=== PATIENT | female | born 1935 | race Caucasian/White ===

== ENCOUNTER → 2016-09-27 | Outpatient (CLI) | payer MEDICARE, BC ==
[~2016-09-27] MED LIST: ACETAMINOPHEN; ACETAMINOPHEN PO; ADVIL200 M3 PO; ALBUTEROL17 GM; AMITRYPTYLINE PO; APAP325 M2 PO; ARTIFICIAL TEAR15 ML OU; ASPIRIN PO; BUSPIRONE HCL7.5 MG PO; DELTASONE20 MG PO; ENTRESTO 24 MG1 EACH; HCTZ PO; IBUPROFEN; IBUPROFEN PO; LASIX; LATANOPROST2.5 ML OU; MAXZIDE-25 MG1 UDTAB; METOPROLOL SUCC50 MG PO; OMEPRAZOLE20 M2 PO; PATIENT'S PHARMACY; PRED MILD5 ML OU; PREDNISONE; PREDNISONE2.5 MG PO; PRENATAL1 TA1 PO; PROTONIX40 M1 PO; TOPROL XL50 MG PO; TYLENOL ES PO; ULTRAM PO; VIT B-12 PO; VITAMIN B122500 MCG PO; ZYRTEC PO
== END | disposition home or self-care (01) ==
LOC: CLAB 12:16
DX: D46.9 Myelodysplastic syndrome, unspecified (principal)
CPT/HCPCS: 86850; 86900; 86901; 86923

== ENCOUNTER → 2016-09-28 | Outpatient (CLI) | payer MEDICARE, BC | END | disposition home or self-care (01) | LOC: CSSDAY 07:30 | DX: D46.9 Myelodysplastic syndrome, unspecified (principal); D64.9 Anemia, unspecified | CPT/HCPCS: 36430; 96365; J1100; J1200; J1940; P9016 ==

== ENCOUNTER → 2016-10-26 | Outpatient (CLI) | payer MEDICARE, BC | END | disposition home or self-care (01) | LOC: CLAB 11:33 | DX: D64.9 Anemia, unspecified (principal) | CPT/HCPCS: 36415; 86850; 86900; 86901; 86923 ==

== ENCOUNTER → 2016-10-27 | Outpatient (CLI) | payer MEDICARE, BC ==
[~2016-10-27] MED LIST changes: +ENTRESTO 24 MG1 EACH PO; +KLOR-CON SPRIN10 MEQ PO
== END | disposition home or self-care (01) ==
LOC: CSSDAY 07:48
DX: D46.9 Myelodysplastic syndrome, unspecified (principal); D64.9 Anemia, unspecified
CPT/HCPCS: 36430; 96365; J1200; J1940; P9016

== ENCOUNTER → 2016-11-16 | Outpatient (CLI) | payer MEDICARE, BC | END | disposition home or self-care (01) | LOC: CLAB 13:52 | DX: D64.9 Anemia, unspecified (principal) | CPT/HCPCS: 36415; 86850; 86900; 86901; 86923 ==

== ENCOUNTER → 2016-11-17 | Outpatient (CLI) | payer MEDICARE, BC | END | disposition home or self-care (01) | LOC: CSSDAY 08:00 | DX: D46.9 Myelodysplastic syndrome, unspecified (principal); D64.9 Anemia, unspecified | CPT/HCPCS: 36430; 96374; J1100; J1200; J1940; P9016 ==

== ENCOUNTER 2016-12-20 08:56 | Inpatient (IN) | payer MEDICARE, BC ==
--- NOTE | ~2016-12-20 | CR71 ---
[facility] A Service of [facility] & [facility] RADIOLOGY TEXT RESULTS PATIENT: GERARDO MORA LOCATION: [address] : 37 UNIT #: [id number] AGE: [address]: Isabel Watson MD SEX: F ORDER DR: [id number] [facility] [address] [place], [place] [address] [id number] I MR#: [id number] Acc #: [id number] NAME: GERARDO MORA : 1935 SEX: F STUDY DATE/TIME: 12/21/2016 13:06 UNIT: [facility] ROOM: [facility] STUDY DESCRIPTION: CR Chest Single View Attending Physician: Isabel Watson M.D. Ordering Physician: Er [facility]icians Primary Care Physician: Jono Louis M.D. MEDICAL IMAGING REPORT This report is preliminary unless electronic signature is present EXAM AP chest HISTORY Hypoxia. Shortness of breath onset today with patient intubated. COMPARISON 12/21/2016 TECHNIQUE Single AP view chest was obtained. FINDINGS The endotracheal tube tip is in good position above the sree. Extensive bilateral infiltrates are again noted. No changes are seen when differences in degree of inspiration are taken into account. The endotracheal tube is in satisfactory position. Dictated by... Nathaniel Tran M.D. THIS IS AN ELECTRONICALLY VERIFIED REPORT Nathaniel Tran M.D. at 12/21/2016 5:10 PM AYUSH/heaven TD: 12/21/2016 15:14 JOB #: [id number] MEDICAL IMAGING REPORT Page 1 of 1 COPY
--- NOTE | ~2016-12-20 | CR72 ---
[facility] A Service of [facility] RADIOLOGY TEXT RESULTS PATIENT: GERARDO MORA LOCATION: [address]28 : 37 UNIT #: [id number] AGE: [address]: Esthela Recinos MD SEX: F ORDER DR: [id number] [place] [address] [place], [place] [address] [id number] I MR#: [id number] Acc #: [id number] NAME: GERARDO MORA. : 1935 SEX: F STUDY DATE/TIME: 12/25/2016 5:24 UNIT: [facility] ROOM: [facility] STUDY DESCRIPTION: CR Chest Single View Portable Attending Physician: Esthela Recinos M.D. Ordering Physician: Ovidio Rhodes M.D. Primary Care Physician: Jono Louis M.D. MEDICAL IMAGING REPORT This report is preliminary unless electronic signature is present EXAM Frontal chest 12/25/2016 INDICATIONS Pneumonia followup. ET tube placement. Respiratory failure. Congestive heart failure. Symptoms 5 days. Anemia and COPD. COMPARISON Frontal chest compared with 12/24/2016. FINDINGS ET tube tip in good position above the sree. Enteric tube tip at the level of the midbody stomach. Right-sided central line unchanged. The heart is enlarged, but stable. Bilateral effusions and bibasilar atelectasis or infiltrates unchanged. Probable vascular congestion and interstitial edema persist. No pneumothorax. IMPRESSION Tubes and lines in satisfactory position. No significant change from 12/24/2016. Dictated by... Crispin Castillo M.D. THIS IS AN ELECTRONICALLY VERIFIED REPORT Crispin Castillo M.D. at 12/25/2016 4:12 PM Andrea TD: 12/25/2016 14:06 JOB #: [id number] MEDICAL IMAGING REPORT [facility] A Service of [facility] RADIOLOGY TEXT RESULTS PATIENT: GERARDO MORA LOCATION: [address] : 37 UNIT #: [id number] AGE: [address]: Esthela Recinos MD SEX: F ORDER DR: Page 1 of 1 COPY
--- NOTE | ~2016-12-20 | CR72 ---
[facility] A Service of [facility] RADIOLOGY TEXT RESULTS PATIENT: GERARDO MORA LOCATION: [place] [address] : 37 UNIT #: [id number] AGE: [address]: Isabel Watson MD SEX: F ORDER DR: [id number] [facility] [address]. [place], [place] [address] [id number] I MR#: [id number] Acc #: [id number] NAME: GERARDO MORA. : 1935 SEX: F STUDY DATE/TIME: 12/23/2016 5:46 UNIT: [facility] ROOM: [facility] STUDY DESCRIPTION: CR Chest Single View Portable Attending Physician: Isabel Watson M.D. Ordering Physician: Ovidio Rhodes M.D. Primary Care Physician: Jono Louis M.D. MEDICAL IMAGING REPORT This report is preliminary unless electronic signature is present EXAM Frontal chest, 12/23/2016. INDICATIONS Shortness of air, symptomatic anemia. Symptoms 2 days. Hypertension. Tobacco abuse. TECHNIQUE Frontal chest compared with 12/21/2016. FINDINGS There has been interval placement of an enteric tube and the tip is at the level of the proximal to midbody stomach. Preexisting tubes and lines in satisfactory position. The heart is enlarged. There are small effusions with probable bibasilar atelectasis. Interstitial opacities bilaterally stable to slightly improved and probably represent slight improvement in edema. No pneumothorax. IMPRESSION 1. Slight improvement in probable pulmonary edema. Persistent effusions and probable bibasilar atelectasis. No pneumothorax. Dictated by... Crispin Castillo M.D. THIS IS AN ELECTRONICALLY VERIFIED REPORT Crispin Castillo M.D. at 12/23/2016 3:31 PM Amanda TD: 12/23/2016 13:26 JOB #: [id number] MEDICAL IMAGING REPORT [facility] A Service of [facility] RADIOLOGY TEXT RESULTS PATIENT: GERARDO MORA LOCATION: [address]28 : 37 UNIT #: [id number] AGE: [address]: Isabel Watson MD SEX: F ORDER DR: Page 1 of 1 COPY
--- NOTE | ~2016-12-20 | EKG ---
PATIENT: GERARDO MORA UNIT #: [id number] Ventricular Rate: 82 BPM Atrial Rate: 73 BPM QRS Duration: 126 ms Q-T Interval: 394 ms QTC Calculation(Bezet): 460 ms Calculated R Herndon: -13 degrees Calculated T Herndon: 104 degrees Diagnosis Line: Unusual P axis, possible ectopic atrial rhythm Diagnosis Line: with premature ventricular or aberrantly conducted Diagnosis Line: complexes and PAC's Diagnosis Line: Left bundle branch block Diagnosis Line: Abnormal ECG Diagnosis Line: When compared with ECG of 20-DEC-2016 09:36, Diagnosis Line: (unconfirmed) Diagnosis Line: PAC's and PVC's present Diagnosis Line: Confirmed by TRE RAPHAEL MD ([id number]) on Diagnosis Line: 12/21/2016 11:11:33 AM INTERPRETING MD: NIKKI
--- NOTE | ~2016-12-20 | CR72 ---
[facility] A Service of [facility] & [facility] RADIOLOGY TEXT RESULTS PATIENT: GERARDO MORA LOCATION: [facility] 566-01 : 37 UNIT #: [id number] AGE: [address]: Janice Pablo MD SEX: F ORDER DR: [id number] [facility] [address] [place], [place] [address] [id number] I MR#: [id number] Acc #: [id number] NAME: GERARDO MORA : 1935 SEX: F STUDY DATE/TIME: 12/20/2016 9:40 UNIT: [facility] ROOM: [facility] STUDY DESCRIPTION: CR Chest Single View Portable Attending Physician: Janice Pablo M.D. Ordering Physician: Marcella Rowe M.D. Primary Care Physician: Jono Louis M.D. MEDICAL IMAGING REPORT This report is preliminary unless electronic signature is present EXAM Single view chest INDICATIONS Shortness of air. FINDINGS Single portable AP view of the chest without comparison. The heart is mildly enlarged. There is mild interstitial prominence. The lungs are hyperinflated. There are small bilateral pleural effusions. No pneumothorax. IMPRESSION 1. Cardiomegaly, mild interstitial prominence and small bilateral pleural effusions suggest background pulmonary edema. Dictated by... Albert Connors M.D. THIS IS AN ELECTRONICALLY VERIFIED REPORT Albert Connors M.D. at 12/20/2016 4:53 PM C/alma delia TD: 12/20/2016 14:41 JOB #: [id number] MEDICAL IMAGING REPORT Page 1 of 1 COPY
--- NOTE | ~2016-12-20 | CR7 ---
[facility] A Service of [facility] & [facility] RADIOLOGY TEXT RESULTS PATIENT: GERARDO MORA LOCATION: [address]07[address]28 : 37 UNIT #: [id number] AGE: [address]: Isabel Watson MD SEX: F ORDER DR: [id number] [facility] [address] [place], [place] [address] [id number] I MR#: [id number] Acc #: [id number] NAME: GERARDO MORA : 1935 SEX: F STUDY DATE/TIME: 12/21/2016 13:53 UNIT: [facility] ROOM: [facility] STUDY DESCRIPTION: CR Abdomen Single AP View Attending Physician: Isabel Watson M.D. Ordering Physician: Isabel Watson M.D. Primary Care Physician: Jono Louis M.D. MEDICAL IMAGING REPORT This report is preliminary unless electronic signature is present EXAM AP of the abdomen INDICATIONS Dobbhoff tube COMPARISON No comparisons FINDINGS The NG tube is coiled in the esophagus. There is persistent contrast within the kidneys and collecting system. IMPRESSION Dobbhoff tube is coiled in the esophagus. It needs to be removed and re-advanced. Report discussed with the patient's nurse at the time of dictation. Dictated by... Monty Erazo M.D. THIS IS AN ELECTRONICALLY VERIFIED REPORT Monty Erazo M.D. at 12/22/2016 7:24 PM ARS/to TD: 12/21/2016 17:02 JOB #: [id number] MEDICAL IMAGING REPORT Page 1 of 1 COPY
--- NOTE | ~2016-12-20 | FU ---
[facility] Therapy DATE: 12/26/16 Patient: GERARDO MORA Physician: SIRIA Address: [address] [place] [address] DRIVE Room/Bed: [address], Zip: [place] [address] Admit Date: 12/20/16 Date of : 39 Height: 5 3 Weight: 139 63.5 NUTRITION MONITORING/FOLLOW-UP: Reason: PT SEEN FOR ENTERAL NUTRITION SUPPORT FOLLOW-UP DX: SYMPTOMATIC ANEMIA, SOA Anthropometrics: 5'3", WT: 139# (63 KG), BMI: 24.6 -WEIGHTS HAVE BEEN STABLE SINCE ADMIT-ADMIT WT: 138# Labs: K+:3.4, GLU: 124, BUN: 36, ALB: 3.4, A1c: 6.4 Meds: NACL, KCL, SOLU-MEDROL, LIPITOR, FUROSEMIDE, CYANOCOBALAMIN, VERSED, PROTONIX I&O's: 1192/2420 Skin: NO KNOWN SKIN ISSUES Estimated Nutrition Needs: [id number] KCAL 62-93 G PRO Assessment: CHART REVIEWED AND EVENTS NOTED. PT SEEN FOR FOLLOW-UP. PT CONTINUES TO BE ON VENT, CURRENT ENTERAL NUTRITION SUPPORT OF JEVITY 1.5 TURNED OFF 2' PROCEDURE TODAY. PER RN AND CHART, PT TOLERATING ENTERAL NUTRITION SUPPORT, NO ISSUES NOTED. FAMILY IN ROOM REPORTED PT CURRENT WEIGHT IS 134#. FAMILY REPORTED NO DIET QUESTIONS AT THIS TIME. RD TO CONTINUE TO FOLLOW. Dx: INADEQUATE ORAL INTAKE R/T CURRENT CLINICAL CONDITION AEB NPO, INTUBATION.-ACTIVE NEW DX: INADEQUATE ENTERAL NUTRITION INFUSION R/T EN NOT AT GOAL RATE AEB EN TURNED OFF 2' PROCEDURE. Intervention: 1. NPO Monitoring, Evaluation and Goals: 1. ENTERAL NUTRITION; ONCE INITIATED, PROVIDE >80% TOTAL VOLUME-NOT MET 2. WEIGHTS; PROMOTE WEIGHT MAINTENANCE-ACTIVE/IN PROEGRESS 3. LABS; WNL-IN PROGRESS NEW GOALS: 1. GI; PROMOTE REGULAR GI FUNCTION MONITOR: -TF RE-INITIATION [facility] Therapy DATE: 12/26/16 Patient: GERARDO MORA Physician: SIRIA Address: [address] [place], [place] [address] [address] Room/Bed: [address], Zip: [place] [address] Admit Date: 12/20/16 Date of : 37 Height: 5 3 Weight: 139 63.5 -WEIGHTS -LABS -EXTUBATION Recommendations: 1. ONCE MEDICALLY FEASIBLE, RE-INITIATE ENTERAL NUTRITION SUPPORT OF JEVITY 1.5 @ 20 ML/HR, ADVANCE 10 ML q 4 HOURS TO GOAL RATE OF 50 ML/HR -PROVIDES 1800 KCAL, 77 G PRO, 912 ML FREE H20 CONTINUE FREE H20 FLUSHES PER MD 2. OPTIMIZE BLOOD SUGAR CONTROL REGIMEN-PT ON STEROIDS. PLEASE REPLETE K+ LEVELS 3. ONCE PT EXTUBATED, ADVANCE DIET PER KILN [employer] + REGULAR + [address] WILL F/U PER PROTOCOL PT IS MODERATELY COMPROMISED Respectfully, AZUL ENNIS MS, RD, LD [employer] and Nutrition[facility] Services [facility] cc: client file
--- NOTE | ~2016-12-20 | EKG ---
PATIENT: GERARDO MORA UNIT #: [id number] Ventricular Rate: 65 BPM Atrial Rate: 65 BPM P-R Interval: 170 ms QRS Duration: 130 ms Q-T Interval: 416 ms QTC Calculation(Bezet): 432 ms P Morrill: 54 degrees Calculated R Morrill: -14 degrees Calculated T Morrill: 120 degrees Diagnosis Line: Normal sinus rhythm with sinus arrhythmia Diagnosis Line: Left bundle branch block Diagnosis Line: Abnormal ECG Diagnosis Line: When compared with ECG of 21-DEC-2016 08:58, Diagnosis Line: Sinus rhythm has replaced Ectopic atrial rhythm Diagnosis Line: Confirmed by SANJEEV DICK MD ([id number]) on Diagnosis Line: 12/22/2016 3:07:53 PM INTERPRETING MD: KAPIL SOTO
--- NOTE | ~2016-12-20 | CR72 ---
[facility] A Service of [facility] & [facility] RADIOLOGY TEXT RESULTS PATIENT: GERARDO MORA LOCATION: [address]28 : 37 UNIT #: [id number] AGE: [address]: Isabel Watson MD SEX: F ORDER DR: [id number] [facility] [address] [place], [place] [address] [id number] I MR#: [id number] Acc #: [id number] NAME: GERARDO MORA : 1935 SEX: F STUDY DATE/TIME: 12/21/2016 17:54 UNIT: [facility] ROOM: [facility] STUDY DESCRIPTION: CR Chest Single View Portable Attending Physician: Isabel Watson M.D. Ordering Physician: Er [facility]icians Primary Care Physician: Jono Louis M.D. MEDICAL IMAGING REPORT This report is preliminary unless electronic signature is present EXAM Single view of the chest 12/21/2016 at 1754 hours COMPARISON STUDIES Single view chest 12/21/2016 at 1306 hours HISTORY Shortness of air. Endotracheal tube and line placement. Symptoms started on 12/21/2016. FINDINGS Frontal view of the chest was obtained. Tip of the endotracheal tube is about 4.8 cm from the tip of the sree. Right IJ approach PICC line catheter tip is in the region of the SVC. No obvious pneumothorax is seen. Scattered alveolar and interstitial opacities are noted in the lungs bilaterally, particularly in the perihilar regions extending to the lateral aspect of the 3 lobes on each side. This was also seen on the previous study and it is relatively stable, given the differences in technique and respiratory status. Mild bilateral pleural effusions cannot be excluded, given the hazy opacity in region of bilateral lateral CP angles. No obvious pneumothorax. Borderline-sized to mild cardiomegaly. Dictated by... Erik Mart M.D. THIS IS AN ELECTRONICALLY VERIFIED REPORT Erik Mart M.D. at 12/22/2016 2:24 PM CPR/pcl TD: 12/21/2016 21:13 [facility] A Service of [facility] & [facility] RADIOLOGY TEXT RESULTS PATIENT: GERARDO MORA LOCATION: [address] : 37 UNIT #: [id number] AGE: [address]: Isabel Watson MD SEX: F ORDER DR: SARAH #: [id number] MEDICAL IMAGING REPORT Page 1 of 1 COPY
--- NOTE | ~2016-12-20 | CR72 ---
[facility] A Service of [facility] & [facility] RADIOLOGY TEXT RESULTS PATIENT: GERARDO MORA LOCATION: [facility] - : 37 UNIT #: [id number] AGE: [address]: Ovidio Araujo MD SEX: F ORDER DR: [id number] [facility] [address] [place], [place] [address] [id number] I MR#: [id number] Acc #: [id number] NAME: GERARDO MORA : 1935 SEX: F STUDY DATE/TIME: 12/29/2016 5:52 UNIT: [address] ROOM: [facility] STUDY DESCRIPTION: CR Chest Single View Portable Attending Physician: Ovidio Araujo M.D. Ordering Physician: Ovidio Araujo M.D. Primary Care Physician: Jono Louis M.D. MEDICAL IMAGING REPORT This report is preliminary unless electronic signature is present EXAM Single view chest INDICATION Shortness of air and cough. FINDINGS Single portable AP view of the chest compared to 12/27/2016. The endotracheal tube and enteric tube have been removed. Right IJ remains in place. There is a prominent skin fold in the right and left lung. There is no pneumothorax. There is increasing atelectasis and/or effusion in the left lung base. IMPRESSION 1. Interval extubation and removal of the enteric tube. 2. Developing atelectasis and/or small effusion in the left lung base. Dictated by... Albert Connors M.D. THIS IS AN ELECTRONICALLY VERIFIED REPORT Albert Connors M.D. at 12/30/2016 12:49 AM RUTH/elvis TD: 12/29/2016 06:42 JOB #: [id number] MEDICAL IMAGING REPORT Page 1 of 1 COPY
--- NOTE | ~2016-12-20 | CO ---
Unit #: [id number] #: [id number] Patient: GERARDO MORA [id number] [address] [place], [place] [address] [id number] I MR#: [id number] NAME: GERARDO MORA. ROOM: [facility] Age: 81 Sex: F Admission Date: 12/20/2016 : 1935 Attending Physician: Isabel Watson M.D. Primary Care Physician: Jono Louis M.D. Consultation Date: 12/21/2016 CONSULTATION REPORT DICTATED FOR Dr. Chilo Hogue with [facility]. REASON FOR CONSULTATION Possible CHF as well as elevated troponin. HISTORY OF PRESENT ILLNESS The patient is a 81-year-old white female, who at the time of interview is visibly short of breath and has difficulty with answering questions due to her shortness of breath, so information obtained was very limited by this. The patient states that she did come in for shortness of breath and weakness. She has been getting blood transfusions for history of MDS. Her last transfusion was 11/17/2016. She states that she had been short of breath for the past couple of days and this usually happens when her hemoglobin is low. On admission, her hemoglobin was noted to be 5.5. She was given 2 units of blood and her hemoglobin now is 8.3. After the blood, the patient's saturations became worsened and it was felt that she may be in some fluid overload and Cardiology consult was obtained. The patient denies any kind of chest pain, pressure, tightness prior to admission or currently. The patient has a medical history of hypertension, myelodysplastic syndrome, polymyalgia rheumatica, tobacco abuse, small-bowel obstruction. In the emergency department, the blood pressure was 117/41, pulse 77. On EKG, the patient does have a left bundle branch; however, we were unable to determine if this is new as there is no comparison EKG on the chart. PAST MEDICAL HISTORY 1. Hypertension. 2. Myelodysplastic syndrome. 3. Polymyalgia rheumatica. 4. Vertigo. 5. Small bowel obstruction. PAST SURGICAL HISTORY Includes; 1. Colonoscopy. 2. Tonsillectomy. 3. Hysterectomy. 4. Bladder repair. 5. Left first toe surgery. Unit #: [id number] #: [id number] Patient: GERARDO MORA 6. Cataract surgery. 7. Sinus surgery. 8. Colostomy reversal. SOCIAL HISTORY The patient is a smoker of one pack per day. She denies any alcohol abuse or any other drug abuse. ALLERGIES Include penicillin allergy. HOME MEDICATIONS Include latanoprost one drop at bedtime, hydrochlorothiazide 50 mg p.o. every morning, metoprolol succinate 50 mg p.o. every morning, prednisone, ibuprofen 200 mg p.o. b.i.d., acetaminophen 325 mg p.o. b.i.d., vitamin B12 one tab p.o. daily. REVIEW OF SYSTEMS See HPI. PHYSICAL EXAMINATION GENERAL: This is a 81-year-old white female, who is visibly short of breath. VITAL SIGNS: Blood pressure 135/42, temp 97.9, pulse 81, respirations 18. HEENT: Pupils are equal, round, and reactive. Oral mucosa is moist. NECK: No JVD. No thyromegaly. No lymphadenopathy. No carotid bruits. HEART: S1, S2. No S3 or S4. No clicks, no rubs, no murmurs. Regular rate and rhythm. LUNGS: Wheezing throughout. ABDOMEN: Soft. Bowel sounds positive. Nontender and nondistended. EXTREMITIES: No swelling. NEUROLOGICAL: No neuro deficits noted. DIAGNOSTIC STUDIES LABORATORY RESULTS: Includes a troponin of less than 0.05, then less than 0.05, then 0.05, then 0.11, then 1.42. White count 34.1, hemoglobin 8.3, hematocrit 26.2, platelets 56. Sodium 136, potassium 3.4, chloride 99, CO2 of 25, BUN 15, creatinine 0.9, glucose 148. BNP 1468. IMAGING STUDIES: Chest x-ray shows increasing interstitial and alveolar prominence likely fluid pulmonary edema. IMPRESSION 1. Symptomatic anemia. 2. EKG with a left bundle-branch block, no comparison. 3. Possible right lower lobe pneumonia. 4. Dvx-BX-kegpfwm elevation myocardial infarction, possible O2 mismatch versus anemia versus acute myocardial infarction. 5. Hypokalemia. PLAN Hips are going to start the patient on low-dose aspirin. The patient cannot have heparin or Lovenox currently with her anemia as well as the visible blood in the Rodriguez catheter. We will trend troponins and check an EKG now as well as in the morning. We will order a 2D echo to evaluate LV function. We will replace potassium. The patient will likely need an ischemic workup once medically stable. Dr. Hampton will also see and evaluate the patient. Unit #: [id number] #: [id number] Patient: GERARDO MORA Dictated by... GABINO Vasquez TD: 12/22/2016 13:50 JOB #: [id number] CONSULTATION REPORT Page 1 of 1 X X CONSULTATION REPORT
--- NOTE | ~2016-12-20 | CR72 ---
[facility] A Service of [facility] & [facility] RADIOLOGY TEXT RESULTS PATIENT: GERARDO MORA LOCATION: [address]28 : 37 UNIT #: [id number] AGE: [address]: Esthela Recinos MD SEX: F ORDER DR: [id number] [facility] [address] [place], [place] [address] [id number] I MR#: [id number] Acc #: [id number] NAME: GERARDO MORA : 1935 SEX: F STUDY DATE/TIME: 12/24/2016 4:50 UNIT: [facility] ROOM: [facility] STUDY DESCRIPTION: CR Chest Single View Portable Attending Physician: Esthela Recinos M.D. Ordering Physician: Ovidio Rhodes M.D. Primary Care Physician: Jono Louis M.D. MEDICAL IMAGING REPORT This report is preliminary unless electronic signature is present EXAM Single view chest. INDICATIONS Shortness of air and hypertension. FINDINGS Single portable AP view of the chest compared with 12/23/2016. Support lines and tubes are unchanged. The heart and mediastinal contours are stable. Increased airspace opacities and bilateral pleural effusions are unchanged. No pneumothorax. IMPRESSION No interval change. Dictated by... Albert Connors M.D. THIS IS AN ELECTRONICALLY VERIFIED REPORT Albert Connors M.D. at 12/25/2016 1:02 AM RUTH/rainer TD: 12/24/2016 18:11 JOB #: [id number] MEDICAL IMAGING REPORT Page 1 of 1 COPY
--- NOTE | ~2016-12-20 | DS ---
Unit #: [id number] #: [id number] Patient: GERARDO MORA [id number] [address] [place], [place] [address] [id number] I MR#: [id number] NAME: GERARDO MORA. ROOM: 312 Age: 81 Sex: F Admission Date: 12/20/2016 : 1935 Discharge Date: 12/30/2016 Attending Physician: Ovidio Araujo M.D. Primary Care Physician: Jono Louis M.D. DISCHARGE SUMMARY NOTE: Please see initial transfer of care summary dictated by Dr. Watson on December 23, 2016 for diagnoses, consultants and initial clinical history. ADDITIONAL HISTORY The patient had a negative flow cytometry panel, as well as a bone marrow that continues to be suggestive of myelodysplastic syndrome. The patient does not have any acute leukemia or lymphoma noted. She has previously been transfusion dependent with her MDS, requiring transfusions every 2 weeks or so prior to her acute illness. The patient is felt to likely have obstructive coronary artery disease; however, no cardiac cath is going to be done, as this would not change the treatment. At the current time, the patient is felt to be too clinically unstable to be placed on antiplatelet therapy, which would be necessary if any stenting was to be done on her coronary arteries. Likewise, she is felt to have a high mortality rate if she were to undergo coronary artery bypass grafting. At this time we are going to treat her coronary artery disease medically, but considering her transfusion dependent myelodysplastic syndrome and the fact that the patient does have some intermittent symptomatic angina at low hemoglobin levels, we are recommending that her transfusion plan be set for any hemoglobin less than 8 and could be considered higher if she develops chest pain at hemoglobin greater than 8. She is going to be treated with maximal medical therapy, and in the event of chest pain, therapies such as sublingual nitroglycerin or p.o. oral morphine can be tried, and of course, a hemoglobin level should be checked if the patient is developing issues with chest pain and transfused for any hemoglobin less than 8. The patient was weaned off the ventilator and has continued to clinically improved. She continues to have some mild infiltrates in her lungs that are felt to be improving pulmonary edema from her non-ST segment elevation TN and heart failure. She can continue to wean from oxygen as able with continued diuresis, and her Lasix dose can be decreased if felt appropriate at rehab. Patient did have her hemoglobin decreased slightly on the morning of discharge from a level of 7.5 to 6.9. She is not felt to have any acute bleeding, and this is felt to be related to her blood draws and myelodysplastic syndrome. She was given 2 units of packed red blood cells on the day of discharge. DISCHARGE DISPOSITION Signature assisted unit. Unit #: [id number] #: [id number] Patient: GERARDO MORA DISCHARGE STATUS Stable. DISCHARGE ACTIVITY With assistance only. DISCHARGE DIET A 4-jdet-nms-day sodium restriction. DISCHARGE FOLLOW-UP 1. With her pickling grader, Dr. Do, in 1 month. 2. Follow up with Dr. Hogue with cardiology in 4-6 weeks for consideration of cardiac intervention at that time if she is improving in regard to her blood counts and other medical issues. 3. Follow up with primary care physician in 3-8 weeks. 4. Follow up with Dr. Rhodes in 8-10 weeks. DISCHARGE MEDICATIONS 1. Dulera 200, take 2 puffs b.i.d. 2. Combivent 3 mL inhaled q.4 hours p.r.n. shortness of breath. 3. Prednisone 30 mg p.o. daily for 2 days, then 20 mg p.o. daily for 2 days, then 10 mg daily, likely for the rest of her life due to her history of polymyalgia rheumatica. 4. Tylenol 325 mg p.o. b.i.d. 5. Entresto 24 mg/26 mg 1 tablet p.o. b.i.d. 6. Metoprolol tartrate 12.5 mg p.o. b.i.d. 7. Lasix 20 mg p.o. b.i.d. Recommend diuretic dosing times of 6 a.m. and 3 a.m. or near that. 8. Latanoprost drops 1 drop both eyes q.h.s. 9. Lipitor 80 mg p.o. q.h.s. 10. Aspirin 325 mg p.o. daily. 11. Roxanol 10 mg p.o. q.4 hours p.r.n. pain. 12. Nitroglycerin 0.4 mg sublingual q.5 minutes x3 maximum p.r.n. chest pain. 13. Potassium chloride 40 mEq p.o. b.i.d. Okay to use liquid, tablets or powder, depending on patient preference. 14. Protonix 40 mg p.o. daily. 15. Vitamin B12 one tablet p.o. daily. Dictated by... Ovidio Araujo M.D. MARY KAY/andres TD: 12/30/2016 11:37 JOB #: [id number] Unit #: [id number] #: [id number] Patient: GERARDO MORA DISCHARGE SUMMARY Page 1 of 1 X Ovidio Araujo MD X DISCHARGE SUMMARY
--- NOTE | ~2016-12-20 | CR72 ---
[facility] A Service of [facility] & [facility] RADIOLOGY TEXT RESULTS PATIENT: GERARDO MORA LOCATION: [address]28 : 37 UNIT #: [id number] AGE: [address]: Ovidio Araujo MD SEX: F ORDER DR: [id number] [facility] [address] [place], [place] [address] [id number] I MR#: [id number] Acc #: [id number] NAME: GERARDO MORA : 1935 SEX: F STUDY DATE/TIME: 12/26/2016 4:35 UNIT: [facility] ROOM: [facility] STUDY DESCRIPTION: CR Chest Single View Portable Attending Physician: Ovidio Araujo M.D. Ordering Physician: Ovidio Rhodes M.D. Primary Care Physician: Jono Louis M.D. MEDICAL IMAGING REPORT This report is preliminary unless electronic signature is present EXAM Portable chest, 12/26. INDICATIONS Respiratory failure. CHF. FINDINGS AP portable chest is compared with 12/25/2016. Cardiomegaly is stable. Mitral annulus calcifications are present. Feeding tube in the stomach. ET tube and right IJ line are in good position. Bilateral interstitial infiltrates are again seen and are stable to minimally improved. There are persistent small effusions. No pneumothorax. Dictated by... Nathaniel Antonio Jr., M.D. THIS IS AN ELECTRONICALLY VERIFIED REPORT Nathaniel Antonio Jr., M.D. at 12/26/2016 3:48 PM SIRENA/autumn TD: 12/26/2016 14:08 JOB #: [id number] MEDICAL IMAGING REPORT Page 1 of 1 COPY
--- NOTE | ~2016-12-20 | CT16 ---
[facility] A Service of [facility] & [facility] RADIOLOGY TEXT RESULTS PATIENT: GERARDO MORA LOCATION: [address]28 : 37 UNIT #: [id number] AGE: [address]: Isabel Watson MD SEX: F ORDER DR: [id number] [facility] [address] [place], [place] [address] [id number] I MR#: [id number] Acc #: [id number] NAME: GERARDO MORA. : 1935 SEX: F STUDY DATE/TIME: 12/21/2016 11:10 UNIT: [facility] ROOM: [facility] STUDY DESCRIPTION: CT Angio Chest for PE Attending Physician: Isabel Watson M.D. Ordering Physician: Isabel aWtson M.D. Primary Care Physician: Jono Louis M.D. MEDICAL IMAGING REPORT This report is preliminary unless electronic signature is present EXAM CT chest with contrast with CT angiography HISTORY Hypoxia and anemia, shortness of breath for the past 3 days. TECHNIQUE Axial images were obtained through the chest with contrast. 80 mL of Isovue was used. CT angiography was performed with thick sliding MIPs in the sagittal and coronal projections. This CT exam was performed with one or more of the following radiation dose reduction techniques: automatic exposure control, adjustment of mA and/or kV according to patient size, and iterative reconstruction. FINDINGS Chest images at mediastinal window show good filling of the pulmonary arteries. There are no pulmonary artery filling defects to suggest emboli. There are no enlarged mediastinal or hilar lymph nodes. Cardiomegaly is noted and there are small bilateral pleural effusions. Lung window imaging shows bilateral lower lobe atelectasis with extensive infiltrates seen in both lower lobes and more posteriorly in both upper lobes with patchy mosaic areas of ground-glass infiltrate seen in the anterior aspect of both upper lobes. There is also linear scarring or plate-like atelectasis in the right middle lobe. No definite bronchiectasis is seen. The lung images lose some detail because of respiratory artifact from shortness of breath. There is a suggestion of some emphysematous change as well. IMPRESSION 1. Extensive bilateral pulmonary infiltrates predominantly in dependent STS. [facility] A Service of [facility] & [facility] RADIOLOGY TEXT RESULTS PATIENT: GERARDO MORA LOCATION: [address] : 37 UNIT #: [id number] AGE: [address]: Isabel Watson MD SEX: F ORDER DR: [facility] [place]. This could reflect bilateral aspiration pneumonitis. Infectious pneumonia should also be considered. 2. This is accompanied by small bilateral pleural effusions. 3. No evidence of pulmonary embolism. STAT * RESULT Dictated by... Nathaniel Tran M.D. THIS IS AN ELECTRONICALLY VERIFIED REPORT Nathaniel Tran M.D. at 12/21/2016 1:27 PM AYUSH/amarilis TD: 12/21/2016 11:59 JOB #: [id number] MEDICAL IMAGING REPORT Page 1 of 1 COPY
--- NOTE | ~2016-12-20 | CO ---
Unit #: [id number] #: [id number] Patient: GERARDO HANSON [id number] [address] [place], [place] [address] [id number] I MR#: [id number] NAME: GERARDO HANSON ROOM: [facility] Age: 81 Sex: F Admission Date: 12/20/2016 : 1935 Attending Physician: Isabel Watson M.D. Primary Care Physician: Jono Louis M.D. Consultation Date: 12/21/2016 CONSULTATION REPORT REASON FOR CONSULTATION Respiratory failure. HISTORY OF PRESENT ILLNESS A 81-year-old female, who denies any history of lung disease except for a diagnosis of "early COPD," has a history of myelodysplasia and receives transfusions for anemia. Her last transfusion was approximately 6 weeks ago. She had increasing shortness of breath, presented to the emergency room, she was anemic and received 2 units of blood. Her shortness of breath worsened. Saturations were quite low. She now is on high-flow oxygen with adequate saturations. Chest x-ray shows bilateral pulmonary infiltrates. Her troponin is elevated. She is felt to have had a myocardial infarction and Cardiology is seeing. She denies chest pain, palpitations, hemoptysis, pleurisy, sputum production, cough, or fever. She does have wheezing even prior to this episode. PAST MEDICAL HISTORY Remarkable for; 1. Possible COPD. 2. Myelodysplasia syndrome, requiring apparently frequent transfusions. 3. Polymyalgia rheumatica on chronic steroids, they had been tapered down to 2 or 3 mg a day. 4. Hypertension. 5. History of small bowel obstruction. MEDICATIONS According to the med rec sheet, include some eyedrops, hydrochlorothiazide, metoprolol, prednisone, and a variety of p.r.n. medications. ALLERGIES Penicillin and sulfa, unknown reaction. SOCIAL HISTORY She smokes pack of cigarettes a day, but used to smoke 2 packs of cigarettes a day. Her daughter states that she would alternate menthol for regular cigarettes when she was smoking heavily. She denies alcohol use. FAMILY HISTORY No familial lung disease. REVIEW OF SYSTEMS She basically denies anything. She had shortness of breath, which Unit #: [id number] #: [id number] Patient: GERARDO HANSON worsened after transfusion. No abdominal pain, melena, hematochezia, hematuria, dysuria, focal weakness, paresthesias, leg pain, swelling. Further review of systems either in the HPI are negative. PHYSICAL EXAMINATION GENERAL: Reveals a patient, who is pleasant, awake, alert in no distress on high-flow oxygen with saturations at 94% to 95%. VITAL SIGNS: She is afebrile. Pulse 76, respiratory rate is 24, blood pressure is 109/69, 5 feet 3 inches, 138 pounds. HEENT: Pupils are equal, round, and reactive to light. Sclerae anicteric. Head atraumatic. NECK: Supple. No supraclavicular or cervical adenopathy appreciated. CHEST: Fine crackles bilaterally posteriorly. She does have some wheezing. No stridor. CARDIAC: Reveals somewhat distant heart tones. Regular rate and rhythm. No definite murmur, rub, or gallop. ABDOMEN: Soft and nontender. No hepatomegaly or rebound. EXTREMITIES: Reveal no clubbing, cyanosis, or edema. No calf tenderness. SKIN: Warm and dry without rash or diaphoresis. NEUROLOGIC: Grossly intact. No focal motor or sensory deficits. DIAGNOSTIC STUDIES LABORATORY RESULTS: Chest x-ray relatively clear today, diffuse pulmonary infiltrates consistent with pulmonary edema. LABORATORY RESULTS: Arterial blood gas; pH is 7.42, pCO2 of 41, pO2 of 52 on 6 L. She had a repeat blood gas still with significant hypoxemia on 15 L Oxymizer, now she is on high-flow oxygen with adequate saturations. Her BUN is 15, creatinine is 0.9, potassium 3.4, magnesium 1.5. Troponin is 1.42. BNP yesterday 468. Lactic acid normal. Procalcitonin level 0.23. INR normal. Initial cardiac enzymes were negative. White blood cell count is 54, hemoglobin is 8.3, platelet count 56. Blood cultures performed and are pending. Sputum culture is pending. CARDIOVASCULAR STUDIES: EKG; left bundle-branch block. IMPRESSION 1. Acute hypoxemic respiratory failure with bilateral pulmonary edema and acute onset, most likely cardiogenic pulmonary edema in the face of acute myocardial infarction. She may have some volume overload related to her transfusion. Consider TRALI. 2. Massive tobacco use, suspect underlying chronic obstructive pulmonary disease. 3. Myelodysplasia with anemia and pancytopenia. 4. Acute myocardial infarction. 5. Polymyalgia rheumatica, on chronic steroids. 6. History of hypertension. PLAN Agree with steroids, Lasix, nebulized bronchodilators. Agree with high-flow oxygen. Close observation, but if she improves as anticipated, I think she is safe to watch on telemetry. Certainly if she worsens, she will need ICU observation. I will check a BNP today and follow up for echocardiogram. If her BNP remains borderline and her echo shows normal LV function, consider TRALI. Again, more common etiology of pulmonary infiltrates are most likely. Certainly, no smoking is a great benefit and evaluation of underlying COPD can be performed. Unit #: [id number] #: [id number] Patient: GERARDO HANSON Thank you very much for allowing me to participate in the care of the Ms. Hanson. Dictated by... Ovidio Rhodes M.D. AIDA/solomon TD: 12/22/2016 13:57 JOB #: [id number] CC: Nichole Pereira Jr, M.D. CONSULTATION REPORT Page 1 of 1 X Ovidio Rhdoes MD X CONSULTATION REPORT
--- NOTE | ~2016-12-20 | EKG ---
PATIENT: GERARDO MORA UNIT #: [id number] Ventricular Rate: 68 BPM Atrial Rate: 68 BPM P-R Interval: 150 ms QRS Duration: 140 ms Q-T Interval: 450 ms QTC Calculation(Bezet): 478 ms P [place]: 69 degrees Calculated R [place]: 9 degrees Calculated T [place]: 158 degrees Diagnosis Line: Sinus rhythm with Premature atrial complexes Diagnosis Line: Non-specific intra-ventricular conduction block Diagnosis Line: Cannot rule out Anteroseptal infarct , age Diagnosis Line: undetermined Diagnosis Line: T wave abnormality, consider anterior ischemia Diagnosis Line: Abnormal ECG Diagnosis Line: When compared with ECG of 25-DEC-2016 10:45, Diagnosis Line: (unconfirmed) Diagnosis Line: Premature atrial complexes are now Present Diagnosis Line: T wave inversion less evident in Lateral leads Diagnosis Line: Confirmed by ARACELY ESCALONA MD ([id number]) on 12/28/2016 Diagnosis Line: 2:55:24 PM INTERPRETING MD: POLA SOTO
--- NOTE | ~2016-12-20 | CT134 ---
[facility] A Service of [facility] & [facility] RADIOLOGY TEXT RESULTS PATIENT: GERARDO HANSON LOCATION: [facility] 312-01 : 37 UNIT #: [id number] AGE: [address]: Ovidio Araujo MD SEX: F ORDER DR: [id number] [id number] [facility]. [place], [place] [address] [id number] I MR#: [id number] Acc #: [id number] NAME: GERARDO HANSON. : 1935 SEX: F STUDY DATE/TIME: 12/26/2016 11:30 UNIT: [facility] ROOM: [facility] STUDY DESCRIPTION: CT Guide Attending Physician: Ovidio Araujo M.D. Ordering Physician: Michele Do M.D. Primary Care Physician: Jono Louis M.D. MEDICAL IMAGING REPORT This report is preliminary unless electronic signature is present EXAM CT-guided bone marrow biopsy. INDICATION Symptomatic anemia. Ms. Hanson is a 81-year-old lady who was noted to be anemic on December 18, 2016. She has a history of polymyalgia rheumatica and has had a prior bone marrow biopsy in December 2015. TECHNIQUE This CT exam was performed with one or more of the following radiation dose reduction techniques: automatic exposure control, adjustment of mA and/or kV according to patient size, and iterative reconstruction. PROCEDURE The risks, benefits, and alternatives to the procedure were explained to the patient's power of tax associate attorney and signed informed consent was obtained. She was placed in the left lateral decubitus position and preliminary CT scan was performed through the region of interest. An appropriate site overlying the patient's right iliac bone was selected. The overlying skin was marked. The patient was prepped and draped in the usual sterile fashion. Time-out was performed as per protocol. Skin and subcutaneous tissues were anesthetized with buffered lidocaine and a bone mineralization biopsy needle was advanced into the right iliac bone. Repeat CT scan confirmed appropriate trajectory of the needle which was subsequently advanced into the bone marrow. Bone marrow aspirate was obtained. The needle was advanced further into the bone marrow and then removed which yielded an adequate core sample. Manual pressure was applied until hemostasis was obtained. The patient did receive moderate sedation consisting of 2.5 mg of Versed and 25 mcg of fentanyl. I supervised the IVR nurse monitored the patient's vital signs for a total for 31 minutes of face to face time. IMPRESSION [facility] A Service of [facility] RADIOLOGY TEXT RESULTS PATIENT: GERARDO HANSON LOCATION: [facility] 312-01 : 37 UNIT #: [id number] AGE: [address]: Ovidio Araujo MD SEX: F ORDER DR: Technically successful CT-guided bone marrow biopsy as noted above. CT was used during the procedure and permanent images were saved. Dictated by... Lisa Soares M.D. THIS IS AN ELECTRONICALLY VERIFIED REPORT Lisa Soares M.D. at 12/29/2016 7:30 AM JUDAH/autumn TD: 12/28/2016 12:47 JOB #: [id number] MEDICAL IMAGING REPORT Page 1 of 1 COPY
--- NOTE | ~2016-12-20 | EKG ---
PATIENT: GERARDO MORA UNIT #: [id number] Ventricular Rate: 75 BPM Atrial Rate: 75 BPM P-R Interval: 168 ms QRS Duration: 136 ms Q-T Interval: 492 ms QTC Calculation(Bezet): 549 ms P [place]: 22 degrees Calculated R [place]: -2 degrees Calculated T [place]: 168 degrees Diagnosis Line: Sinus rhythm with Premature atrial complexes Diagnosis Line: Left bundle branch block Diagnosis Line: Abnormal ECG Diagnosis Line: When compared with ECG of 21-DEC-2016 12:39, Diagnosis Line: (unconfirmed) Diagnosis Line: Premature atrial complexes are now Present Diagnosis Line: T wave inversion now evident in Anterior leads Diagnosis Line: QT has lengthened Diagnosis Line: Confirmed by SANJEEV DICK MD ([id number]) on Diagnosis Line: 12/22/2016 3:08:21 PM INTERPRETING MD: KAPIL SOTO
--- NOTE | ~2016-12-20 | CR72 ---
[facility] A Service of [facility] RADIOLOGY TEXT RESULTS PATIENT: GERARDO MORA LOCATION: [facility] : 37 UNIT #: [id number] AGE: [address]: Isabel Watson MD SEX: F ORDER DR: [id number] [facility] [address] [place], [place] [address] [id number] I MR#: [id number] Acc #: [id number] NAME: GERARDO MORA. : 1935 SEX: F STUDY DATE/TIME: 12/21/2016 1:13 UNIT: [facility] ROOM: [facility] STUDY DESCRIPTION: CR Chest Single View Portable Attending Physician: Isabel Watson M.D. Ordering Physician: Janice Pablo M.D. Primary Care Physician: Jono Louis M.D. MEDICAL IMAGING REPORT This report is preliminary unless electronic signature is present EXAM Portable chest. INDICATIONS Shortness of air today. PROCEDURE Frontal view chest. COMPARISON 12/20/2016 FINDINGS Cardiomegaly is stable. Chronic parenchymal change with worsening superimposed interstitial and alveolar prominence in both lungs. There may be a small right effusion. IMPRESSION Increasing interstitial and alveolar prominence in both lungs as well as a trace right effusion. Opacities, probably representing edema, given their rapid development. Infiltrate is not excluded. Dictated by... Cuong Ivory M.D. THIS IS AN ELECTRONICALLY VERIFIED REPORT Cuong Ivory M.D. at 12/21/2016 10:27 PM EED/marcus TD: 12/21/2016 08:28 JOB #: [id number] MEDICAL IMAGING REPORT [facility] A Service of [facility] RADIOLOGY TEXT RESULTS PATIENT: GERARDO MORA LOCATION: [facility] : 37 UNIT #: [id number] AGE: [address]: Isabel Watson MD SEX: F ORDER DR: Page 1 of 1 COPY
--- NOTE | ~2016-12-20 | XA51 ---
[facility] A Service of [facility] & [facility] RADIOLOGY TEXT RESULTS PATIENT: GERARDO HANSON LOCATION: [facility] 312-01 : 37 UNIT #: [id number] AGE: [address]: Ovidio Araujo MD SEX: F ORDER DR: [id number] [id number] [place], [place] [address] [id number] I MR#: [id number] Acc #: [id number] NAME: GERARDO HANSON. : 1935 SEX: F STUDY DATE/TIME: 12/26/2016 11:30 UNIT: [facility] ROOM: [facility] STUDY DESCRIPTION: XA BX Bone Marrow Attending Physician: Ovidio Araujo M.D. Ordering Physician: Ovidio Araujo M.D. Primary Care Physician: Jono Louis M.D. MEDICAL IMAGING REPORT This report is preliminary unless electronic signature is present EXAM CT-guided bone marrow biopsy. INDICATION Symptomatic anemia. Ms. Hanson is a 81-year-old lady who was noted to be anemic on December 18, 2016. She has a history of polymyalgia rheumatica and has had a prior bone marrow biopsy in December 2015. FINDINGS Please see CT guide for results. Dictated by... Lisa Soares M.D. THIS IS AN ELECTRONICALLY VERIFIED REPORT Lisa Soares M.D. at 12/29/2016 7:31 AM AFF/tmw TD: 12/28/2016 12:49 JOB #: [id number] MEDICAL IMAGING REPORT Page 1 of 1 COPY
--- NOTE | ~2016-12-20 | TOC ---
Unit #: [id number] #: [id number] Patient: GERARDO HANSON [id number] [address] [address] [id number] I MR#: [id number] NAME: GERARDO HANSON. ROOM: [facility] Age: 81 Sex: F Admission Date: 12/20/2016 : 1935 Attending Physician: Isabel Watson M.D. Primary Care Physician: Jono Louis M.D. TRANSFER OF CARE SUMMARY PRINCIPAL DIAGNOSES 1. Acute hypoxic respiratory failure, multifactorial. 2. Non-ST segment elevation myocardial infarction. 3. Acute exacerbation of newly diagnosed systolic congestive heart failure with an ejection fraction of 15% to 20%. 4. Right lower lobe pneumonia. 5. Myelodysplastic syndrome without evidence of transformation to acute leukemia. 6. Severe anemia secondary to myelodysplastic syndrome status post transfusion of four units of packed red blood cells. 7. Acute exacerbation of chronic obstructive pulmonary disease. 8. Hypokalemia. 9. Chronic immunosuppression. 10. Polymyalgia rheumatica, maintained on chronic steroid therapy low dose. 11. Thrombocytopenia secondary to myelodysplastic syndrome. 12. Leukocytosis secondary to myelodysplastic syndrome. 13. Pulmonary hypertension. 14. Moderate protein malnutrition. 15. Tobaccoism. CONSULTANTS 1. Dr. Hancock, oncology. 2. Dr. Rhodes, pulmonology. 3. Dr. Hogue, cardiology. PROCEDURES 1. Two-dimensional echocardiogram on December 21, 2016 with ejection fraction of anywhere from 15% to 25%, severe hypokinetic motion of the anterior anteroseptal wall of the left ventricle noted. Mild to moderate left ventricular hypertrophy. Moderately enlarged right ventricle with reduced right ventricular systolic function. Moderate tricuspid regurgitation. Right ventricular systolic pressure of 44 mmHg. 2. Flow cytometry which was negative for monoclonal cells. 3. CT angiogram of the chest on December 21, 2016 with extensive bilateral pulmonary infiltrates in the dependent lung angeles. Small bilateral pleural effusions. Negative for PE. 4. Multiple followup chest x-rays are revealing diffuse infiltrate. CLINICAL HISTORY AND HOSPITAL COURSE Gerardo Hanson is a very nice 81-year-old female with a history of MDS, who presents to the emergency department due to symptomatic Unit #: [id number] #: [id number] Patient: GERARDO HANSON anemia, i.e., shortness of breath and fatigue. In the emergency department she was found to have a hemoglobin of 5.5. She was admitted for transfusion. Prior to transfusion patient was noted to have some hypoxia and was requiring 6 L of oxygen to maintain oxygen saturations. She was transfused two units of packed red blood cells and subsequently developed a significant worsening of her respiratory status. Chest x-ray revealed significant pulmonary edema and Lasix was ordered. Cardiology was also consulted given clinical concern for congestive heart failure. On the morning of the the patient's respiratory status declined significantly. She was found to have both crackles and wheezes on exam and required high flow oxygen to maintain O2 sats. Dr. Rhodes was consulted. Again, patient was started on IV steroids, diuretics and CT angiogram of the chest was done which was negative for PE. Unfortunately her respiratory status continued to decline and patient was transferred to the unit and subsequently intubated. From a respiratory standpoint, at this point it appears she has likely a combination of congestive heart failure, COPD and perhaps some right lower lobe pneumonia. Sputum to this point has been negative but the patient has spiked a few fevers. Repeat sputum blood cultures and UA are currently pending. We will continue empiric Rocephin, IV steroids and IV diuretics. Upon admission patient's troponin was initially negative. However, after her progressive dyspnea a repeat troponin returned at 1.42. Cardiology prior to this point had been consulted. Patient was given aspirin but unfortunately her platelet count of anywhere around 50,000 precludes Lovenox therapy. There were attempts to place on nitroglycerin drip but patient became hypotensive and this was discontinued. At this point troponins are simply being followed and she is being maintained on aspirin therapy and we are watching platelet counts closely. Unfortunately there is really not much intervention that can be does in the future given this will require high dose antiplatelet therapy. Two-dimensional echocardiogram was done revealing significantly low ejection fraction. My clinical suspicion is this was present prior to this onset of symptoms given the patient's DC appears to be rather small, at least based upon troponin markers. We will continue with medical management at this point. In regard to the patient's MDS, Dr. Hancock was consulted. There was perhaps some concern for a leukemic transformation but flow cytometry is negative. At this point we are simply supporting with blood and platelet transfusion if necessary. Further hospital course to be dictated as an addendum. Dictated by... Isabel Watson M.D. AMIRA/luis fernando TD: 12/23/2016 15:47 JOB #: [id number] Unit #: [id number] #: [id number] Patient: MORGANGERARDO Brandin TRANSFER OF CARE SUMMARY Page 1 of 1 X Isabel Watson MD X TRANSFER OF CARE SUMMARY
--- NOTE | ~2016-12-20 | EKG ---
PATIENT: GERARDO MORA UNIT #: [id number] Ventricular Rate: 68 BPM Atrial Rate: 68 BPM P-R Interval: 104 ms QRS Duration: 142 ms Q-T Interval: 450 ms QTC Calculation(Bezet): 478 ms Calculated R [place]: -18 degrees Calculated T [place]: 98 degrees Diagnosis Line: Sinus rhythm with short TX Diagnosis Line: Left bundle branch block Diagnosis Line: Abnormal ECG Diagnosis Line: No previous ECGs available Diagnosis Line: Confirmed by TRE RAPHAEL MD ([id number]) on Diagnosis Line: 12/21/2016 10:53:28 AM INTERPRETING MD: NIKKI
--- NOTE | ~2016-12-20 | CR68 ---
[facility] A Service of [facility] & [facility] RADIOLOGY TEXT RESULTS PATIENT: GERARDO MORA LOCATION: [facility] - : [birth year] UNIT #: [id number] AGE: [address]: Ovidio Araujo MD SEX: F ORDER DR: [id number] [facility] [address] [place], [place] [address] [id number] I MR#: [id number] #: [id number] NAME: GERARDO MORA : 1935 SEX: F STUDY DATE/TIME: 12/29/2016 12:49 UNIT: [address] ROOM: [facility] STUDY DESCRIPTION: CR Chest Decubitus Only Lt Attending Physician: Ovidio Araujo M.D. Ordering Physician: Ovidio Araujo M.D. Primary Care Physician: Jono Louis M.D. MEDICAL IMAGING REPORT This report is preliminary unless electronic signature is present EXAM Decubitus views of the chest, 12/29/2016 HISTORY Pleural effusions FINDINGS Very small mobile bilateral effusions. No pneumothorax. No convincing basilar consolidation on either side. Dictated by... Randy Dan M.D. THIS IS AN ELECTRONICALLY VERIFIED REPORT Randy Dan M.D. at 01/04/2017 10:36 AM LETTY/amarilis TD: 12/29/2016 15:30 JOB #: [id number] MEDICAL IMAGING REPORT Page 1 of 1 COPY
--- NOTE | ~2016-12-20 | HP ---
Unit #: [id number] #: [id number] Patient: GERARDO MORA [id number] [id number] [facility]. [place], [place] [address] [id number] MR#: [id number] NAME: GERARDO MORA. ROOM: Age: 81 Sex: F Admission Date: 12/20/2016 : 1935 Attending Physician: Marcella Rowe M.D. Primary Care Physician: Jono Louis M.D. HISTORY AND PHYSICAL CHIEF COMPLAINT Short of air. HISTORY OF PRESENT ILLNESS The patient is a 81-year-old female with a past medical history of myelodysplastic syndrome, hypertension, small bowel obstruction, polymyalgia rheumatica, who presented to the emergency department for evaluation of the above. The patient states that her last transfusion was November 17. She has been short of breath with exertion since yesterday. She states it is similar to when her hemoglobin was low in the past. She denies any fever. She has a cough at baseline. In the emergency department, initially pulse and blood pressure were 77 and 117/41 respectively. Hemoglobin is 5.5. Two units of packed red blood cells have been ordered. She is being admitted to [facility] for evaluation and further treatment. Also of note, chest x-ray shows possible infiltrate in the right base. She was given Rocephin and azithromycin. PAST MEDICAL HISTORY 1. Admission to [facility] in 2000 for small bowel obstruction. 2. Myelodysplastic syndrome, maintained on chronic prednisone, followed by Dr. Hancock. 3. Polymyalgia rheumatica. 4. Vertigo. PAST SURGICAL HISTORY 1. Colonoscopy May 16, 2009, was normal. 2. Tonsillectomy. 3. Hysterectomy. 4. Bladder repair. 5. Left wrist surgery. 6. Cataract surgery. 7. Sinus surgery. 8. Colostomy and reversal. SOCIAL HISTORY The patient smokes a pack of cigarettes daily. She denies alcohol use. She walks with a cane. FAMILY HISTORY Unit #: [id number] #: [id number] Patient: GERARDO MORA The patient states that she doesn't know her father's history. She denies a family history of high blood pressure. ALLERGIES Penicillin and sulfa. HOME MEDICATIONS 1. Hydrochlorothiazide. 2. Prednisone. 3. Vitamin B12. Home medications will need to be reviewed and verified. REVIEW OF SYSTEMS A complete review of systems is negative except as indicated in the HPI. The patient denies any blood in the stool. No black tarry stool. DIAGNOSTIC STUDIES CARDIOVASCULAR: EKG shows sinus rhythm. There is a left bundle branch block. There is no old EKG for comparison. IMAGING: Chest x-ray shows possible right basilar infiltrate. Voice clip is pending. LABORATORY: Comprehensive metabolic panel notable for sodium of 134, potassium is 3, glucose 111. Troponin is less than 0.05, lactic acid is 1.6, INR is 1.1. BNP is 468. Complete blood count notable for white blood cell count of 26.3, hemoglobin and hematocrit 5.5 and 17.2 respectively. Platelets are 58. PHYSICAL EXAMINATION VITAL SIGNS: Temperature is 98.7, pulse 77, respirations 20, blood pressure 117/41, oxygen saturation is 94% on room air. GENERAL: The patient is a female who is awake and alert, in no acute distress. HEENT: The head is atraumatic. Mucous membranes are moist. NECK: Supple. Trachea is midline. CARDIOVASCULAR: Regular rate and rhythm. LUNGS: Demonstrate rhonchi at the right base. Breathing is not labored. ABDOMEN: Soft, nontender. She does have a ventral hernia that is reducible. Bowel sounds are present in all four quadrants. EXTREMITIES: Nontender with no pedal edema. NEURO: The patient is awake and alert. She follows commands. PSYCH: Mood and affect are normal. The patient is cooperative. SKIN: Skin of examined areas is warm and dry. ASSESSMENT The patient is a 81-year-old female with: 1. Symptomatic anemia: The patient's hemoglobin was 8.2 on January 13, 2016. It is 5.5 today. Two units of packed red blood cells have been ordered. 2. History of myelodysplastic syndrome, maintained on chronic prednisone, followed by Dr. Hancock. 3. Thrombocytopenia: The patient's platelet count was 143 on January 13, 2016. It is 58 today. 4. Ammonia, clinical: The patient received Rocephin and azithromycin in Unit #: [id number] #: [id number] Patient: GERARDO MORA the emergency department. 5. Hypertension. 6. History of small bowel obstruction. 7. History of polymyalgia rheumatica. 8. Left bundle branch block. There is not an old EKG for comparison. The patient denies current chest pain. 9. Hypokalemia. 10. Tobacco abuse. PLAN 1. Admit to intermediate level. 2. Clear liquid diet until seen by Dr. Hancock. 3. Hemoglobin and hematocrit one hour after transfusion and q.6 hours. 4. Blood cultures x2. 5. Sputum culture and sensitivity. 6. Supplemental oxygen. 7. Procalcitonin level. 8. Rocephin and azithromycin for community-acquired pneumonia, pending further workup. 9. Duo-Nebs q.4 hours p.r.n. 10. Serial cardiac enzymes. 11. Get copy of old EKG. 12. Check magnesium level. 13. Calcium and magnesium protocol. 14. Repeat labs in the morning. 15. SCDs for DVT prophylaxis. 16. Additional workup and consultants as above. Dictated by Janice Pablo M.D. INDIA/eric TD: 12/20/2016 12:43 JOB #: [id number] HISTORY AND PHYSICAL Page 1 of 1 X Janice Pablo MD X HISTORY AND PHYSICAL
--- NOTE | ~2016-12-20 | CR72 ---
[facility] A Service of [facility] & [facility] RADIOLOGY TEXT RESULTS PATIENT: GERARDO MORA LOCATION: [address] : [birth year] UNIT #: [id number] AGE: [address]: Ovidio Araujo MD SEX: F ORDER DR: [id number] [facility] [address] [facility] [facility]. [place], [place] [address] [id number] I MR#: [id number] Acc #: [id number] NAME: GERARDO MORA. : 1935 SEX: F STUDY DATE/TIME: 12/27/2016 5:33 UNIT: [facility] ROOM: [facility] STUDY DESCRIPTION: CR Chest Single View Portable Attending Physician: Ovidio Araujo M.D. Ordering Physician: Ovidio Rhodes M.D. Primary Care Physician: Jono Louis M.D. MEDICAL IMAGING REPORT This report is preliminary unless electronic signature is present EXAM Portable chest HISTORY Respiratory failure, CHF, onset of symptoms 12/20/2016 COMPARISON 12/26/2016 FINDINGS Tubes and lines remain in satisfactory position, unchanged. No significant change in cardiopulmonary status. Continued mild diffuse interstitial infiltrates. Loss left hemidiaphragm blunting left CP angle suggests small left effusion. Left basilar atelectasis. Heart and mediastinum unremarkable except for minimal atherosclerotic changes. Lucency over the right upper and lateral chest felt to represent a skin fold. No convincing evidence of pneumothorax. Dictated by... Hyun Erazo M.D. THIS IS AN ELECTRONICALLY VERIFIED REPORT Hyun Erazo M.D. at 12/28/2016 12:28 PM AUBRIE/bobo TD: 12/27/2016 21:21 JOB #: [id number] MEDICAL IMAGING REPORT Page 1 of 1 COPY
--- NOTE | ~2016-12-20 | CR63 ---
[facility] A Service of [facility] & [facility] RADIOLOGY TEXT RESULTS PATIENT: GERARDO MORA LOCATION: [facility]- : 37 UNIT #: [id number] AGE: [address]: Ovidio Araujo MD SEX: F ORDER DR: [id number] [facility] [address] [facility]. [place], [place] [address] [id number] I MR#: [id number] Acc #: [id number] NAME: GERARDO MORA : 1935 SEX: F STUDY DATE/TIME: 12/29/2016 12:44 UNIT: [address] ROOM: [facility] STUDY DESCRIPTION: CR Chest 2 View Attending Physician: Ovidio Araujo M.D. Ordering Physician: Ovidio Araujo M.D. Primary Care Physician: Jono Louis M.D. MEDICAL IMAGING REPORT This report is preliminary unless electronic signature is present EXAM Chest - PA and lateral, 12/29/2016 at 12:44 COMPARISON 12/29/2016 at 05:52 portable chest HISTORY Short of air for about 10 days. FINDINGS Left pleural effusion and probable elevation of the left hemidiaphragm, mild cardiomegaly but no pneumothorax. Right lung is slightly hyperexpanded but otherwise well aerated. Dictated by... Randy Dan M.D. THIS IS AN ELECTRONICALLY VERIFIED REPORT Randy Dan M.D. at 01/04/2017 10:36 AM LETTY/amarilis TD: 12/29/2016 15:28 JOB #: [id number] MEDICAL IMAGING REPORT Page 1 of 1 COPY
--- NOTE | ~2016-12-20 | EKG ---
PATIENT: GERARDO MORA UNIT #: [id number] Ventricular Rate: 77 BPM Atrial Rate: 77 BPM P-R Interval: 152 ms QRS Duration: 126 ms Q-T Interval: 430 ms QTC Calculation(Bezet): 486 ms P [place]: 4 degrees Calculated R [place]: -13 degrees Calculated T [place]: 88 degrees Diagnosis Line: Sinus rhythm with Premature supraventricular Diagnosis Line: complexes Diagnosis Line: Left bundle branch block Diagnosis Line: Abnormal ECG Diagnosis Line: When compared with ECG of 29-DEC-2016 06:25, Diagnosis Line: Premature supraventricular complexes are now Diagnosis Line: Present Diagnosis Line: Nonspecific T wave abnormality no longer evident Diagnosis Line: in Inferior leads Diagnosis Line: T wave inversion no longer evident in Anterior Diagnosis Line: leads Diagnosis Line: Confirmed by TRE RAPHAEL MD ([id number]) on Diagnosis Line: 01/01/2017 9:53:37 AM INTERPRETING MD: NIKKI
--- NOTE | ~2016-12-20 | CR7 ---
[facility] A Service of [facility] & [facility] RADIOLOGY TEXT RESULTS PATIENT: GERARDO MORA LOCATION: [place] [address] : [birth year] UNIT #: [id number] AGE: [address]: Isabel Watson MD SEX: F ORDER DR: [id number] [facility] [address] [place], [place] [address] [id number] I MR#: [id number] #: [id number] NAME: GERARDO MORA : 1935 SEX: F STUDY DATE/TIME: 12/22/2016 8:40 UNIT: [facility] ROOM: [facility] STUDY DESCRIPTION: CR Abdomen Single AP View Attending Physician: Isabel Watson M.D. Ordering Physician: Isabel Watson M.D. Primary Care Physician: Jono Louis M.D. MEDICAL IMAGING REPORT This report is preliminary unless electronic signature is present EXAM KUB HISTORY Dobbhoff tube placed. TECHNIQUE Single AP view of the abdomen was obtained. FINDINGS The tip of the Dobbhoff tube is in good position projecting over the upper stomach. The bowel gas pattern is nonspecific. STAT * RESULT Dictated by... Nathaniel Tran M.D. THIS IS AN ELECTRONICALLY VERIFIED REPORT Nathaniel Tran M.D. at 12/22/2016 3:43 PM AYUSH/autumn TD: 12/22/2016 09:06 JOB #: [id number] MEDICAL IMAGING REPORT Page 1 of 1 COPY
--- NOTE | ~2016-12-20 | EKG ---
PATIENT: GERARDO MORA UNIT #: [id number] Ventricular Rate: 64 BPM Atrial Rate: 64 BPM P-R Interval: 160 ms QRS Duration: 128 ms Q-T Interval: 462 ms QTC Calculation(Bezet): 476 ms P [place]: 59 degrees Calculated R [place]: 10 degrees Calculated T [place]: 175 degrees Diagnosis Line: Normal sinus rhythm with sinus arrhythmia Diagnosis Line: Left bundle branch block Diagnosis Line: T wave abnormality, consider anterior ischemia Diagnosis Line: Abnormal ECG Diagnosis Line: When compared with ECG of 22-DEC-2016 06:35, Diagnosis Line: Premature atrial complexes are no longer Present Diagnosis Line: QT has shortened Diagnosis Line: Confirmed by ARACELY ESCALONA MD ([id number]) on 12/28/2016 Diagnosis Line: 2:50:23 PM INTERPRETING MD: POLA SOTO
--- NOTE | ~2016-12-20 | EKG ---
PATIENT: GERARDO MORA UNIT #: [id number] Ventricular Rate: 61 BPM Atrial Rate: 61 BPM P-R Interval: 144 ms QRS Duration: 128 ms Q-T Interval: 486 ms QTC Calculation(Bezet): 489 ms P [place]: 50 degrees Calculated R [place]: -17 degrees Calculated T [place]: 43 degrees Diagnosis Line: Normal sinus rhythm Diagnosis Line: Left bundle branch block Diagnosis Line: Abnormal ECG Diagnosis Line: When compared with ECG of 26-DEC-2016 06:07, Diagnosis Line: Premature atrial complexes are no longer Present Diagnosis Line: T wave inversion less evident in Anterior leads Diagnosis Line: Confirmed by POLLY LISA MD ([id number]) on Diagnosis Line: 12/30/2016 7:58:37 AM INTERPRETING MD: SLOAN SOTO
--- NOTE | ~2016-12-20 | A ---
[facility] Nutrition Therapy DATE: 12/21/16 Patient: GERARDO MORA Physician: SIRIA Address: [address] [place] [address] DRIVE Room/Bed: [address], Zip: [place] [address] Admit Date: 12/20/16 Date of : [birth year] Height: 5 3 Weight: 138 62.7 NUTRITIONAL ASSESSMENT: REASON: Consult re: tube feed recommendations 81 y/o female admitted to ICU for SOA PMH: myelodysplastic syndrome, HTN, SBO (2000), polymyalgia rheumatic, smoker Anthropometrics: ht: 5'3" wt: 138# (62 kg) BMI: 23 Labs: K+ 3.4, Cl- 99, Glu 148, Alb 3.4, Mg++ 1.5, accuchecks 157, HgbA1C 6.4 Meds: atorvastin Ca++, xalantan, versed, protonix, solu-medrol, KCl I/O & Bowel function: 656/850. BM 12/20 Skin Integrity: WNL Estimated Nutrition Needs: 1919-3149 kcal (25-30 kcal/kg) 62-93 g protein (1.0-1.5 g/kg) fluids consistent with kcals or per MD Assessment: Chart reviewed, events noted. Pt was recently transferred to ICU from floor due to SOA. Pt is intubated and sedated at this time. Seeing pt for consult re: tubefeed recommendations. RD financial internship spoke with family at bedside, they report that her weight of 138# is stable. A DHT is being placed today. Please see recommendations, RD will continue to follow. Dx: Inadequate oral intake r/t current clinical condition AEB NPO status, intubation Intervention: 1. Enteral nutrition Monitoring, Evaluation and Goals: 1. Enteral nutrition; once medically feasible and EN initiated, provide >80% of goal volume. 2. Weight; promote weight maintenance of healthy weight 3. Labs; WNL Recommendations: 1. Once medically feasible, initiate enteral nutrition support of Jevity 1.5 @ 20 mL/hr and advance 10 mL q 8 hours to goal rate of 50 mL/hr. This will provide 1800 kcal, 76 g [facility] Nutrition Therapy DATE: 12/21/16 Patient: GERARDO MORA Physician: SIRIA Address: [address] Room/Bed: [address], Zip: [place] [address] Admit Date: 12/20/16 Date of : [birth year] Height: 5 3 Weight: 138 62.7 protein, 912 mL free h20. Free water flushes per MD. 2. Once pt extubated, advance diet to regular + 6 small meals. Monitor for adequate PO intake. RD will f/u per protocol as pt is at moderate nutritional risk. Respectfully, [employer], sports apparel internship Gayla Camacho MS, RD, LD Food and Nutritional Services [facility] cc: client file
--- NOTE | ~2016-12-20 | CO ---
Unit #: [id number] #: [id number] Patient: GERARDO MORA [id number] [address] [place], [place] [address] [id number] MR#: [id number] NAME: GERARDO MORA ROOM: [facility] Age: 81 Sex: F Admission Date: 12/20/2016 : 1935 Attending Physician: Isabel Watson M.D. Primary Care Physician: Jono Louis M.D. Consultation Date: 12/21/2016 CONSULTATION REPORT REASON FOR EVALUATION Severe anemia and possible myelodysplasia. 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 PAST MEDICAL HISTORY Her past history is remarkable for small bowel obstruction in 2000, myelodysplastic syndrome diagnosed December by bone marrow, history of polymyalgia rheumatica, vertigo, COPD, [id number] . FAMILY HISTORY Family history is remarkable for hypertension but negative for blood dyscrasias. SOCIAL HISTORY Heavy smoker for 50 years, no alcohol usage. ALLERGIES Penicillin and sulfa. CURRENT MEDICATIONS 1. Prednisone at a low dose of 5 mg or 10 mg. 2. Hydrochlorothiazide. 3. Vitamin B12. REVIEW OF SYSTEMS Review of systems is very extensive: Ill health, tiredness, shortness of breath, decreased appetite and inability to take care of herself at home due to shortness of breath; otherwise six or eight systems were within normal limits. PHYSICAL EXAMINATION GENERAL: On exam she is wheezing, in respiratory failure, on high O2, had a pulse ox of 86, unable to speak much due to the shortness of breath. LYMPHATIC: No supraclavicular, axillary or groin nodes. LUNGS: Bilateral wheeze, very poor air entry. CARDIOVASCULAR: Distant S1 and S2 and tachycardic. Unit #: [id number] #: [id number] Patient: GERARDO MORA ABDOMEN: Scaphoid, no organomegaly. EXTREMITIES: Upper and lower extremity musculature atrophy. DIAGNOSTIC STUDIES LABORATORY: CBC on presentation was 5.5, hematocrit 17.2, white count 26.3 and platelets 58,000. Today CBC after two units of packed RBCs hemoglobin is 8.3, hematocrit 26.2, white count 54.1 and platelets 56,000. IMPRESSION This 81-year-old lady, well-known to us with history of transfusion-dependent anemia with myelodysplasia, now has a sudden change with severe anemia, elevated white count and thrombocytopenia. 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 Now presents with severe anemia, elevated white count, decreased platelet count and respiratory failure due to COPD exacerbation. PLAN Agree with pulmonary evaluation and the packed RBCs. We will proceed with flow cytometry, LL panel. As the patient is too ill to lie down flat to get a bone marrow aspirate biopsy done at this point will see what the flow shows, transfuse as needed and bone marrow when she is pulmonary-moody stable enough to lie flat. Dictated by... Nichole Hoffman/luis fernando TD: 12/21/2016 16:29 JOB #: [id number] CONSULTATION REPORT Page 1 of 1 X J Luis Hancock MD X CONSULTATION REPORT
[~2016-12-20 08:56] MED LIST changes: -ACETAMINOPHEN; -APAP325 M2 PO; -BUSPIRONE HCL7.5 MG PO; -ENTRESTO 24 MG1 EACH; -ENTRESTO 24 MG1 EACH PO; -IBUPROFEN; -IBUPROFEN PO; -KLOR-CON SPRIN10 MEQ PO; -LASIX; -METOPROLOL SUCC50 MG PO; -PATIENT'S PHARMACY; -PREDNISONE; -PROTONIX40 M1 PO; -VITAMIN B122500 MCG PO
[2016-12-20 09:54] LABS: BASOPHIL# 0.2 X10e3 (0-0.3); BASOPHIL% 0.8 % (0-2.5); EOSINOPHIL# 0.2 X10e3 (0-0.7); EOSINOPHIL% 0.7 % (0.0-7.0); HEMATOCRIT 17.2 % (35.0-45.0); LYMPHOCYTE# 0.9 X10e3 (1.0-3.5); LYMPHOCYTE% 3.5 % (17.0-45.0); MEAN CELL VOLUME 99.9 FL (83-96); MEAN CORPUSCULAR HEMOGLOBIN 32.1 PG (28-34); MEAN CORPUSCULAR HGB CONC 32.2 g/dL (30-36); MEAN PLATELET VOLUME 9.7 FL (6.5-11.5); MONOCYTE# 6.1 X10e3 (0-1.0); MONOCYTE% 23.3 % (3.0-12.0); NEUTROPHIL# 18.8 X10e3 (1.5-7.1); NEUTROPHIL% 71.7 % (40-75); PLATELET COUNT 58 X10e3 (140-420); RED BLOOD COUNT 1.72 X10e (3.90-5.30); RED CELL DISTRIBUTION WIDTH 26.9 % (11.0-15.5); WHITE BLOOD COUNT 26.3 X10e3 (4.0-10.5)
[2016-12-20 09:55] LABS: POC - CKMB <1.0 ng/mL (0.0-7.9); POC - TROPONIN <0.05 ng/mL (<=0.05)
[2016-12-20 09:56] LABS: HEMOGLOBIN 5.5 gm/dL (12.0-16.0)
[2016-12-20 09:57] LABS: DIFF IND YES
[2016-12-20 10:12] LABS: INR 1.1; PARTIAL THROMBOPLASTIN TIME 24.9 SECONDS (23.5-31.3); PROTHROMBIN TIME (PATIENT) 11.6 SECONDS (10.0-11.7)
[2016-12-20 10:16] LABS: ALBUMIN SERUM 3.5 g/dL (3.5-5.0); BILIRUBIN, DIRECT 0.2 mg/dL (0.0-0.2); BILIRUBIN,INDIRECT 0.5 mg/dL (0.0-0.9); BILIRUBIN,TOTAL 0.7 mg/dL (0.2-2.0); BUN/CREATININE RATIO 21.66; CALCIUM SERUM 8.6 mg/dL (8.4-10.2); CREATININE SERUM 0.6 mg/dL (0.6-1.4); GLOM FILT RATE Estimated 86.7 mL/min (>60); PROTEIN TOTAL SERUM 6.1 g/dL (6.0-8.3)
[2016-12-20 10:36] LABS: PLATELET ESTIMATE DECREASED (NORMAL)
[2016-12-20 10:37] LABS: ANISOCYTOSIS MOD; OVALOCYTES PRESENT; RBC NORMAL YES
[2016-12-20 10:38] LABS: POLYCHROMASIA SL
[2016-12-20 10:40] LABS: POIKILOCYTOSIS SL
[2016-12-20 11:54] LABS: POC - CKMB <1.0 ng/mL (0.0-7.9); POC - TROPONIN <0.05 ng/mL (<=0.05)
[2016-12-20] MEDS ORDERED: PATIENT'S PHARMACY (12:29)
[2016-12-20] MEDS ORDERED: HCTZ PO (12:30)
[2016-12-20] MEDS ORDERED: LATANOPROST2.5 ML OU (12:30)
[2016-12-20] MEDS ORDERED: PREDNISONE (12:34)
[2016-12-20] MEDS ORDERED: APAP325 M2 PO (12:35)
[2016-12-20] MEDS ORDERED: IBUPROFEN PO (12:35)
[2016-12-20 12:55] LABS: MAGNESIUM 1.5 mg/dL (1.6-3.0)
[2016-12-20 13:23] LABS: PROCALCITONIN 0.23 NG/ML
[2016-12-20 19:51] LABS: HEMATOCRIT 23.6 % (35.0-45.0)
[2016-12-20 19:52] LABS: HEMOGLOBIN 7.7 gm/dL (12.0-16.0)
[2016-12-20 20:00] LABS: CK TOTAL 27 IU/L (26-140)
[2016-12-21 00:55] LABS: ARTERIAL BLD GAS O2 SATURATION 83.4 % (90.0-100.0); ARTERIAL BLOOD GAS CARBOXY HB 0.9 %sat (0.0-9.0); ARTERIAL BLOOD GAS HCO3 26.8 mmol/L; ARTERIAL BLOOD GAS MET HB 0.9 %sat (0.0-2.0); ARTERIAL BLOOD GAS PCO2 40.8 mmHg (35.0-45.0); ARTERIAL BLOOD GAS pH 7.426 (7.350-7.450)
[2016-12-21 00:56] LABS: ARTERIAL BLOOD GAS ALLEN TEST NORMAL; ARTERIAL BLOOD GAS ART SITE LEFT RADIAL; ARTERIAL BLOOD GAS DELIVERY NASAL CANNULA; ARTERIAL BLOOD GAS PO2 52.4 mmHg (80.0-100); ARTERIAL DRAW? YES
[2016-12-21 00:58] LABS: CK TOTAL 39 IU/L (26-140)
[2016-12-21 05:55] LABS: HEMATOCRIT 26.2 % (35.0-45.0); HEMOGLOBIN 8.3 gm/dL (12.0-16.0); MEAN CORPUSCULAR HEMOGLOBIN 29.5 PG (28-34); MEAN CORPUSCULAR HGB CONC 31.6 g/dL (30-36); RED BLOOD COUNT 2.8 X10e (3.90-5.30); RED CELL DISTRIBUTION WIDTH 24.2 % (11.0-15.5)
[2016-12-21 06:01] LABS: MEAN CELL VOLUME 93.5 FL (83-96); WHITE BLOOD COUNT 54.1 X10e3 (4.0-10.5)
[2016-12-21 07:23] LABS: ALBUMIN SERUM 3.4 g/dL (3.5-5.0); BILIRUBIN,TOTAL 0.6 mg/dL (0.2-2.0); BUN/CREATININE RATIO 16.66; CALCIUM SERUM 8.8 mg/dL (8.4-10.2); CREATININE SERUM 0.9 mg/dL (0.6-1.4); GLOM FILT RATE Estimated 60.9 mL/min (>60); POTASSIUM 3.4 mmol/L (3.5-5.1); PROTEIN TOTAL SERUM 6.2 g/dL (6.0-8.3)
[2016-12-21 08:26] LABS: ARTERIAL BLD GAS O2 SATURATION 86.9 % (90.0-100.0); ARTERIAL BLOOD GAS CARBOXY HB 0.9 %sat (0.0-9.0); ARTERIAL BLOOD GAS HCO3 26.9 mmol/L; ARTERIAL BLOOD GAS MET HB 0.8 %sat (0.0-2.0); ARTERIAL BLOOD GAS PCO2 36.9 mmHg (35.0-45.0); ARTERIAL BLOOD GAS pH 7.471 (7.350-7.450)
[2016-12-21 08:27] LABS: ARTERIAL BLOOD GAS ALLEN TEST POS; ARTERIAL BLOOD GAS ART SITE RIGHT RADIAL; ARTERIAL BLOOD GAS DELIVERY OXYMIZER; ARTERIAL BLOOD GAS PO2 52.7 mmHg (80.0-100); ARTERIAL DRAW? YES
[2016-12-21 09:51] LABS: CHOLESTEROL 110 mg/dL (0-200); HDL CHOLESTEROL 27 mg/dL (35-95); LDL CHOLESTEROL 66 mg/dL (-130); LDL/HDL RATIO 2 RATIO (0-4); TRIGLYCERIDES 84 mg/dL (10-160)
[2016-12-21 13:36] LABS: ARTERIAL BLD GAS O2 SATURATION 95.7 % (90.0-100.0); ARTERIAL BLOOD GAS CARBOXY HB 0.4 %sat (0.0-9.0); ARTERIAL BLOOD GAS HCO3 27.4 mmol/L; ARTERIAL BLOOD GAS PCO2 47.7 mmHg (35.0-45.0); ARTERIAL BLOOD GAS pH 7.369 (7.350-7.450)
[2016-12-21 13:39] LABS: ARTERIAL BLOOD GAS ART SITE RIGHT RADIAL; ARTERIAL BLOOD GAS DELIVERY VENT; ARTERIAL BLOOD GAS VENT MODE AC; ARTERIAL DRAW? YES
[2016-12-21 16:39] LABS: BUN/CREATININE RATIO 22.22; CALCIUM SERUM 8.2 mg/dL (8.4-10.2); CREATININE SERUM 0.9 mg/dL (0.6-1.4); GLOM FILT RATE Estimated 60.9 mL/min (>60); POTASSIUM 4.5 mmol/L (3.5-5.1)
[2016-12-21 19:12] LABS: HEMATOCRIT 22.9 % (35.0-45.0); HEMOGLOBIN 7.3 gm/dL (12.0-16.0); MEAN CELL VOLUME 92.9 FL (83-96); MEAN CORPUSCULAR HEMOGLOBIN 29.7 PG (28-34); MEAN CORPUSCULAR HGB CONC 31.9 g/dL (30-36); MEAN PLATELET VOLUME 9.7 FL (6.5-11.5); RED BLOOD COUNT 2.47 X10e (3.90-5.30); RED CELL DISTRIBUTION WIDTH 24.7 % (11.0-15.5); WHITE BLOOD COUNT 49.2 X10e3 (4.0-10.5)
[2016-12-22 04:20] LABS: ARTERIAL BLD GAS O2 SATURATION 95.2 % (90.0-100.0); ARTERIAL BLOOD GAS CARBOXY HB 0.7 %sat (0.0-9.0); ARTERIAL BLOOD GAS HCO3 28.2 mmol/L; ARTERIAL BLOOD GAS MET HB 0.8 %sat (0.0-2.0); ARTERIAL BLOOD GAS PCO2 45.2 mmHg (35.0-45.0); ARTERIAL BLOOD GAS PO2 87.3 mmHg (80.0-100); ARTERIAL BLOOD GAS pH 7.404 (7.350-7.450)
[2016-12-22 04:23] LABS: ARTERIAL BLOOD GAS ALLEN TEST NORMAL; ARTERIAL BLOOD GAS ART SITE RIGHT RADIAL; ARTERIAL BLOOD GAS DELIVERY VENT; ARTERIAL BLOOD GAS VENT MODE AC; ARTERIAL DRAW? YES
[2016-12-22 04:41] LABS: BASOPHIL# 0.1 X10e3 (0-0.3); BASOPHIL% 0.2 % (0-2.5); EOSINOPHIL% 0.1 % (0.0-7.0); HEMATOCRIT 21.7 % (35.0-45.0); LYMPHOCYTE# 2.1 X10e3 (1.0-3.5); MEAN CORPUSCULAR HEMOGLOBIN 29.7 PG (28-34); MEAN CORPUSCULAR HGB CONC 31.9 g/dL (30-36); MEAN PLATELET VOLUME 9.8 FL (6.5-11.5); MONOCYTE# 12.3 X10e3 (0-1.0); MONOCYTE% 24.1 % (3.0-12.0); NEUTROPHIL# 36.4 X10e3 (1.5-7.1); NEUTROPHIL% 71.6 % (40-75); RED BLOOD COUNT 2.34 X10e (3.90-5.30)
[2016-12-22 04:44] LABS: WHITE BLOOD COUNT 50.9 X10e3 (4.0-10.5)
[2016-12-22 04:45] LABS: DIFF IND NO; HEMOGLOBIN 6.9 gm/dL (12.0-16.0); PLATELET COUNT 42 X10e3 (140-420)
[2016-12-22 04:59] LABS: CALCIUM SERUM 8.2 mg/dL (8.4-10.2); CREATININE SERUM 0.8 mg/dL (0.6-1.4); GLOM FILT RATE Estimated 70.2 mL/min (>60); POTASSIUM 4.1 mmol/L (3.5-5.1)
[2016-12-22 10:27] LABS: LEGIONELLA AG URINE NEG (NEG)
[2016-12-22 13:54] LABS: HEMATOCRIT 25.4 % (35.0-45.0); HEMOGLOBIN 8.2 gm/dL (12.0-16.0)
[2016-12-23 04:07] LABS: ARTERIAL BLD GAS O2 SATURATION 90.8 % (90.0-100.0); ARTERIAL BLOOD GAS CARBOXY HB 0.5 %sat (0.0-9.0); ARTERIAL BLOOD GAS MET HB 0.9 %sat (0.0-2.0); ARTERIAL BLOOD GAS PCO2 46.8 mmHg (35.0-45.0); ARTERIAL BLOOD GAS pH 7.457 (7.350-7.450)
[2016-12-23 04:12] LABS: ARTERIAL BLOOD GAS ALLEN TEST NORMAL; ARTERIAL BLOOD GAS ART SITE LEFT RADIAL; ARTERIAL BLOOD GAS DELIVERY VENT; ARTERIAL BLOOD GAS PO2 63.3 mmHg (80.0-100); ARTERIAL BLOOD GAS VENT MODE AC; ARTERIAL DRAW? YES
[2016-12-23 06:25] LABS: BASOPHIL# 0.3 X10e3 (0-0.3); BASOPHIL% 0.6 % (0-2.5); HEMATOCRIT 25.4 % (35.0-45.0); HEMOGLOBIN 8.3 gm/dL (12.0-16.0); LYMPHOCYTE% 4.8 % (17.0-45.0); MEAN CELL VOLUME 92.4 FL (83-96); MEAN CORPUSCULAR HGB CONC 32.5 g/dL (30-36); MEAN PLATELET VOLUME 10.4 FL (6.5-11.5); MONOCYTE# 5.8 X10e3 (0-1.0); MONOCYTE% 13.6 % (3.0-12.0); NEUTROPHIL# 34.8 X10e3 (1.5-7.1); RED BLOOD COUNT 2.75 X10e (3.90-5.30); RED CELL DISTRIBUTION WIDTH 16.1 % (11.0-15.5)
[2016-12-23 06:37] LABS: PLATELET COUNT 39 X10e3 (140-420)
[2016-12-23 06:38] LABS: DIFF IND NO
[2016-12-23 06:39] LABS: ALBUMIN SERUM 2.9 g/dL (3.5-5.0); BILIRUBIN,TOTAL 0.5 mg/dL (0.2-2.0); CALCIUM SERUM 8.4 mg/dL (8.4-10.2); CREATININE SERUM 0.8 mg/dL (0.6-1.4); GLOM FILT RATE Estimated 70.2 mL/min (>60); MAGNESIUM 2.1 mg/dL (1.6-3.0); POTASSIUM 3.4 mmol/L (3.5-5.1); PROTEIN TOTAL SERUM 5.7 g/dL (6.0-8.3)
[2016-12-23 14:38] LABS: URINE APPEARANCE CLEAR; URINE BILIRUBIN NEG (NEG); URINE BLOOD 3+ (NEG); URINE COLOR YELLOW; URINE GLUCOSE NEG (NEG); URINE KETONE NEG (NEG); URINE LEUKOCYTE ESTERASE TRACE (NEG); URINE NITRATE NEG (NEG); URINE PH 5.5 (5-8); URINE PROTEIN NEG (NEG); URINE SPECIFIC GRAVITY 1.014 (1.003-1.035); URINE UROBILINOGEN 0.2 MG/DL (NEG)
[2016-12-23 14:41] LABS: URBCS1 AUWI 200-300 /[HPF] (0-2); URINE BACTERIA AUWI NEG (NEGATIVE); URINE SQUAMOUS EPITHELIAL CELL NONE SEEN /[HPF]
[2016-12-23 14:43] LABS: CULTURE INDICATED? NO
[2016-12-24 04:22] LABS: ARTERIAL BLD GAS O2 SATURATION 94.9 % (90.0-100.0); ARTERIAL BLOOD GAS CARBOXY HB 0.4 %sat (0.0-9.0); ARTERIAL BLOOD GAS HCO3 36.3 mmol/L; ARTERIAL BLOOD GAS MET HB 0.9 %sat (0.0-2.0); ARTERIAL BLOOD GAS PCO2 47.9 mmHg (35.0-45.0); ARTERIAL BLOOD GAS pH 7.488 (7.350-7.450)
[2016-12-24 04:38] LABS: ARTERIAL BLOOD GAS ALLEN TEST NORMAL; ARTERIAL BLOOD GAS ART SITE LEFT RADIAL; ARTERIAL BLOOD GAS DELIVERY VENT; ARTERIAL BLOOD GAS PO2 77.1 mmHg (80.0-100); ARTERIAL BLOOD GAS VENT MODE AC; ARTERIAL DRAW? YES
[2016-12-24 06:24] LABS: ALBUMIN SERUM 3.1 g/dL (3.5-5.0); BILIRUBIN,TOTAL 0.9 mg/dL (0.2-2.0); BUN/CREATININE RATIO 66.25; CALCIUM SERUM 8.5 mg/dL (8.4-10.2); CREATININE SERUM 0.8 mg/dL (0.6-1.4); GLOM FILT RATE Estimated 70.2 mL/min (>60); MAGNESIUM 2.2 mg/dL (1.6-3.0); PHOSPHOROUS 3.4 mg/dL (2.5-4.6); POTASSIUM 3.4 mmol/L (3.5-5.1)
[2016-12-24 06:57] LABS: BASOPHIL# 0.2 X10e3 (0-0.3); BASOPHIL% 0.4 % (0-2.5); EOSINOPHIL% 0.1 % (0.0-7.0); HEMATOCRIT 24.5 % (35.0-45.0); HEMOGLOBIN 7.9 gm/dL (12.0-16.0); LYMPHOCYTE# 3.1 X10e3 (1.0-3.5); LYMPHOCYTE% 7.2 % (17.0-45.0); MEAN CELL VOLUME 92.8 FL (83-96); MEAN CORPUSCULAR HEMOGLOBIN 30.1 PG (28-34); MEAN CORPUSCULAR HGB CONC 32.4 g/dL (30-36); MEAN PLATELET VOLUME 10.3 FL (6.5-11.5); MONOCYTE# 6.3 X10e3 (0-1.0); MONOCYTE% 14.4 % (3.0-12.0); NEUTROPHIL# 34.2 X10e3 (1.5-7.1); NEUTROPHIL% 77.9 % (40-75); RED BLOOD COUNT 2.64 X10e (3.90-5.30); RED CELL DISTRIBUTION WIDTH 18.1 % (11.0-15.5); WHITE BLOOD COUNT 43.9 X10e3 (4.0-10.5)
[2016-12-24 07:01] LABS: DIFF IND YES; PLATELET COUNT 42 X10e3 (140-420)
[2016-12-24 10:51] LABS: NUCLEATED RED BLOOD CELL 1 /100 (0)
[2016-12-24 10:53] LABS: ANISOCYTOSIS MOD; HYPOCHROMIA SL; PLATELET ESTIMATE DECREASED (NORMAL); TEAR DROP CELLS PRESENT; TOXIC GRANULATION SL
[2016-12-24 10:54] LABS: SMUDGE CELLS 10 /100
[2016-12-24 10:55] LABS: REACTIVE LYMPHS PRESENT
[2016-12-25 03:53] LABS: ARTERIAL BLD GAS O2 SATURATION 97.2 % (90.0-100.0); ARTERIAL BLOOD GAS CARBOXY HB 0.4 %sat (0.0-9.0); ARTERIAL BLOOD GAS pH 7.484 (7.350-7.450)
[2016-12-25 04:07] LABS: ARTERIAL BLOOD GAS ALLEN TEST NORMAL; ARTERIAL BLOOD GAS ART SITE LEFT RADIAL; ARTERIAL BLOOD GAS DELIVERY VENT; ARTERIAL BLOOD GAS PCO2 57.2 mmHg (35.0-45.0); ARTERIAL BLOOD GAS VENT MODE AC; ARTERIAL DRAW? YES
[2016-12-25 05:12] LABS: BASOPHIL# 0.2 X10e3 (0-0.3); BASOPHIL% 0.4 % (0-2.5); EOSINOPHIL# 0.2 X10e3 (0-0.7); EOSINOPHIL% 0.5 % (0.0-7.0); HEMATOCRIT 24.9 % (35.0-45.0); HEMOGLOBIN 7.9 gm/dL (12.0-16.0); LYMPHOCYTE# 4.3 X10e3 (1.0-3.5); LYMPHOCYTE% 9.9 % (17.0-45.0); MEAN CELL VOLUME 95.7 FL (83-96); MEAN CORPUSCULAR HEMOGLOBIN 30.4 PG (28-34); MEAN CORPUSCULAR HGB CONC 31.8 g/dL (30-36); MEAN PLATELET VOLUME 10.6 FL (6.5-11.5); MONOCYTE# 7.6 X10e3 (0-1.0); MONOCYTE% 17.8 % (3.0-12.0); NEUTROPHIL# 30.7 X10e3 (1.5-7.1); NEUTROPHIL% 71.4 % (40-75); RED BLOOD COUNT 2.61 X10e (3.90-5.30); RED CELL DISTRIBUTION WIDTH 21.3 % (11.0-15.5)
[2016-12-25 05:14] LABS: DIFF IND NO; PLATELET COUNT 40 X10e3 (140-420)
[2016-12-25 05:45] LABS: ALBUMIN SERUM 3.2 g/dL (3.5-5.0); BILIRUBIN,TOTAL 0.4 mg/dL (0.2-2.0); CALCIUM SERUM 8.7 mg/dL (8.4-10.2); CREATININE SERUM 0.8 mg/dL (0.6-1.4); GLOM FILT RATE Estimated 70.2 mL/min (>60); MAGNESIUM 2.1 mg/dL (1.6-3.0); POTASSIUM 3.6 mmol/L (3.5-5.1); PROTEIN TOTAL SERUM 5.9 g/dL (6.0-8.3)
[2016-12-26 04:23] LABS: BASOPHIL# 0.2 X10e3 (0-0.3); BASOPHIL% 0.5 % (0-2.5); EOSINOPHIL# 0.5 X10e3 (0-0.7); EOSINOPHIL% 0.9 % (0.0-7.0); HEMATOCRIT 29.5 % (35.0-45.0); HEMOGLOBIN 9.3 gm/dL (12.0-16.0); LYMPHOCYTE# 5.9 X10e3 (1.0-3.5); LYMPHOCYTE% 10.8 % (17.0-45.0); MEAN CELL VOLUME 95.6 FL (83-96); MEAN CORPUSCULAR HEMOGLOBIN 30.2 PG (28-34); MEAN CORPUSCULAR HGB CONC 31.6 g/dL (30-36); MEAN PLATELET VOLUME 10.2 FL (6.5-11.5); MONOCYTE# 9.6 X10e3 (0-1.0); MONOCYTE% 17.4 % (3.0-12.0); NEUTROPHIL# 38.8 X10e3 (1.5-7.1); NEUTROPHIL% 70.4 % (40-75); RED BLOOD COUNT 3.08 X10e (3.90-5.30); RED CELL DISTRIBUTION WIDTH 16.1 % (11.0-15.5)
[2016-12-26 04:28] LABS: ARTERIAL BLD GAS O2 SATURATION 95.2 % (90.0-100.0); ARTERIAL BLOOD GAS CARBOXY HB 0.5 %sat (0.0-9.0); ARTERIAL BLOOD GAS HCO3 37.9 mmol/L
[2016-12-26 04:29] LABS: PLATELET COUNT 37 X10e3 (140-420); WHITE BLOOD COUNT 55.1 X10e3 (4.0-10.5)
[2016-12-26 04:30] LABS: DIFF IND NO
[2016-12-26 04:33] LABS: INR 1.1; PARTIAL THROMBOPLASTIN TIME 23.8 SECONDS (23.5-31.3); PROTHROMBIN TIME (PATIENT) 12.1 SECONDS (10.0-11.7)
[2016-12-26 04:42] LABS: ALBUMIN SERUM 3.4 g/dL (3.5-5.0); CALCIUM SERUM 8.7 mg/dL (8.4-10.2); CREATININE SERUM 0.6 mg/dL (0.6-1.4); GLOM FILT RATE Estimated 86.7 mL/min (>60); MAGNESIUM 2.2 mg/dL (1.6-3.0); PHOSPHOROUS 3.5 mg/dL (2.5-4.6); POTASSIUM 3.4 mmol/L (3.5-5.1); PROTEIN TOTAL SERUM 6.3 g/dL (6.0-8.3)
[2016-12-26 04:44] LABS: ARTERIAL BLOOD GAS ALLEN TEST NORMAL; ARTERIAL BLOOD GAS ART SITE LEFT RADIAL; ARTERIAL BLOOD GAS DELIVERY VENT; ARTERIAL BLOOD GAS PCO2 50.9 mmHg (35.0-45.0); ARTERIAL BLOOD GAS PO2 71.5 mmHg (80.0-100); ARTERIAL BLOOD GAS VENT MODE AC; ARTERIAL DRAW? YES
[2016-12-27 04:39] LABS: BASOPHIL# 0.4 X10e3 (0-0.3); BASOPHIL% 0.6 % (0-2.5); HEMATOCRIT 29.5 % (35.0-45.0); LYMPHOCYTE# 3.1 X10e3 (1.0-3.5); LYMPHOCYTE% 4.8 % (17.0-45.0); MEAN CELL VOLUME 96.6 FL (83-96); MEAN CORPUSCULAR HEMOGLOBIN 29.6 PG (28-34); MEAN CORPUSCULAR HGB CONC 30.7 g/dL (30-36); MEAN PLATELET VOLUME 10.6 FL (6.5-11.5); MONOCYTE# 5.3 X10e3 (0-1.0); MONOCYTE% 8.3 % (3.0-12.0); NEUTROPHIL# 55.6 X10e3 (1.5-7.1); NEUTROPHIL% 86.3 % (40-75); RED BLOOD COUNT 3.06 X10e (3.90-5.30); RED CELL DISTRIBUTION WIDTH 16.3 % (11.0-15.5)
[2016-12-27 04:49] LABS: DIFF IND YES; PLATELET COUNT 37 X10e3 (140-420); WHITE BLOOD COUNT 64.4 X10e3 (4.0-10.5)
[2016-12-27 04:50] LABS: BUN/CREATININE RATIO 67.14; CALCIUM SERUM 8.7 mg/dL (8.4-10.2); CREATININE SERUM 0.7 mg/dL (0.6-1.4); GLOM FILT RATE Estimated 82.4 mL/min (>60); MAGNESIUM 2.4 mg/dL (1.6-3.0)
[2016-12-27 05:19] LABS: ANISOCYTOSIS MOD; OVALOCYTES PRESENT; PLATELET ESTIMATE DECREASED (NORMAL); POIKILOCYTOSIS SL
[2016-12-27 05:20] LABS: NUCLEATED RED BLOOD CELL 2 /100 (0); POLYCHROMASIA SL
[2016-12-27 08:18] LABS: ARTERIAL BLD GAS O2 SATURATION 97.6 % (90.0-100.0); ARTERIAL BLOOD GAS CARBOXY HB 0.3 %sat (0.0-9.0); ARTERIAL BLOOD GAS HCO3 30.4 mmol/L; ARTERIAL BLOOD GAS PCO2 44.7 mmHg (35.0-45.0); ARTERIAL BLOOD GAS pH 7.441 (7.350-7.450)
[2016-12-27 08:19] LABS: ARTERIAL BLOOD GAS ALLEN TEST N; ARTERIAL BLOOD GAS ART SITE LEFT RADIAL; ARTERIAL BLOOD GAS DELIVERY VENT; ARTERIAL DRAW? YES
[2016-12-28 05:28] LABS: BASOPHIL# 0.2 X10e3 (0-0.3); BASOPHIL% 0.2 % (0-2.5); EOSINOPHIL# 0.1 X10e3 (0-0.7); EOSINOPHIL% 0.1 % (0.0-7.0); HEMATOCRIT 25.6 % (35.0-45.0); HEMOGLOBIN 7.8 gm/dL (12.0-16.0); LYMPHOCYTE# 3.3 X10e3 (1.0-3.5); LYMPHOCYTE% 3.9 % (17.0-45.0); MEAN CELL VOLUME 94.9 FL (83-96); MEAN CORPUSCULAR HEMOGLOBIN 29.1 PG (28-34); MEAN CORPUSCULAR HGB CONC 30.6 g/dL (30-36); MEAN PLATELET VOLUME 11.2 FL (6.5-11.5); NEUTROPHIL# 69.5 X10e3 (1.5-7.1); NEUTROPHIL% 83.8 % (40-75); RED BLOOD COUNT 2.69 X10e (3.90-5.30); RED CELL DISTRIBUTION WIDTH 16.6 % (11.0-15.5)
[2016-12-28 05:44] LABS: PLATELET COUNT 38 X10e3 (140-420)
[2016-12-28 05:45] LABS: DIFF IND NO
[2016-12-28 06:41] LABS: BUN/CREATININE RATIO 62.85; CREATININE SERUM 0.7 mg/dL (0.6-1.4); GLOM FILT RATE Estimated 82.4 mL/min (>60); POTASSIUM 3.6 mmol/L (3.5-5.1)
[2016-12-28 16:17] LABS: URINE SOURCE CATH
[2016-12-28 16:23] LABS: URINE APPEARANCE CLEAR; URINE BILIRUBIN NEG (NEG); URINE BLOOD 3+ (NEG); URINE COLOR YELLOW; URINE GLUCOSE NEG (NEG); URINE KETONE NEG (NEG); URINE LEUKOCYTE ESTERASE TRACE (NEG); URINE NITRATE NEG (NEG); URINE PH 6.5 (5-8); URINE PROTEIN NEG (NEG); URINE SPECIFIC GRAVITY 1.015 (1.003-1.035); URINE UROBILINOGEN 0.2 MG/DL (NEG)
[2016-12-28 16:26] LABS: URBCS1 AUWI 100-200 /[HPF] (0-2); URINE BACTERIA AUWI NEG (NEGATIVE); URINE SQUAMOUS EPITHELIAL CELL NONE SEEN /[HPF]
[2016-12-28 16:29] LABS: U HYALINE CASTS AUWI 0-2 /[LPF]
[2016-12-29 05:44] LABS: BASOPHIL# 0.2 X10e3 (0-0.3); BASOPHIL% 0.3 % (0-2.5); EOSINOPHIL# 0.9 X10e3 (0-0.7); EOSINOPHIL% 1.2 % (0.0-7.0); HEMATOCRIT 24.1 % (35.0-45.0); HEMOGLOBIN 7.5 gm/dL (12.0-16.0); LYMPHOCYTE# 2.8 X10e3 (1.0-3.5); LYMPHOCYTE% 3.9 % (17.0-45.0); MEAN CELL VOLUME 94.2 FL (83-96); MEAN CORPUSCULAR HEMOGLOBIN 29.3 PG (28-34); MEAN CORPUSCULAR HGB CONC 31.2 g/dL (30-36); MEAN PLATELET VOLUME 10.6 FL (6.5-11.5); MONOCYTE# 9.6 X10e3 (0-1.0); MONOCYTE% 13.4 % (3.0-12.0); NEUTROPHIL# 58.5 X10e3 (1.5-7.1); NEUTROPHIL% 81.2 % (40-75); RED BLOOD COUNT 2.56 X10e (3.90-5.30); RED CELL DISTRIBUTION WIDTH 16.9 % (11.0-15.5)
[2016-12-29 06:19] LABS: DIFF IND NO; PLATELET COUNT 45 X10e3 (140-420)
[2016-12-29 06:22] LABS: BUN/CREATININE RATIO 62.5; CALCIUM SERUM 8.1 mg/dL (8.4-10.2); CREATININE SERUM 0.8 mg/dL (0.6-1.4); GLOM FILT RATE Estimated 70.2 mL/min (>60); MAGNESIUM 2.3 mg/dL (1.6-3.0); POTASSIUM 4.5 mmol/L (3.5-5.1)
[2016-12-30 06:28] LABS: HEMATOCRIT 22.2 % (35.0-45.0); MEAN CELL VOLUME 93.7 FL (83-96); MEAN CORPUSCULAR HEMOGLOBIN 29.2 PG (28-34); MEAN CORPUSCULAR HGB CONC 31.2 g/dL (30-36); MEAN PLATELET VOLUME 10.4 FL (6.5-11.5); RED BLOOD COUNT 2.37 X10e (3.90-5.30); RED CELL DISTRIBUTION WIDTH 15.9 % (11.0-15.5)
[2016-12-30 06:35] LABS: WHITE BLOOD COUNT 73.1 X10e3 (4.0-10.5)
[2016-12-30 06:36] LABS: HEMOGLOBIN 6.9 gm/dL (12.0-16.0)
[2016-12-30 07:11] LABS: BUN/CREATININE RATIO 64.28; CALCIUM SERUM 8.3 mg/dL (8.4-10.2); CREATININE SERUM 0.7 mg/dL (0.6-1.4); GLOM FILT RATE Estimated 82.4 mL/min (>60); POTASSIUM 4.2 mmol/L (3.5-5.1)
[2017-01-26] MEDS ORDERED: LASIX (08:30)
[2017-01-26] MEDS ORDERED: IBUPROFEN (08:30)
[2017-01-26] MEDS ORDERED: ENTRESTO 24 MG1 EACH (08:30)
[2017-01-26] MEDS ORDERED: ACETAMINOPHEN (08:30)
[2017-03-22] MEDS ORDERED: BUSPIRONE HCL7.5 MG PO (08:31)
[2017-03-22] MEDS ORDERED: PROTONIX40 M1 PO (08:32)
[2017-03-22] MEDS ORDERED: KLOR-CON SPRIN10 MEQ PO (08:40)
[2017-03-22] MEDS ORDERED: ENTRESTO 24 MG1 EACH PO (08:41)
[2017-03-22] MEDS ORDERED: METOPROLOL SUCC50 MG PO (12:30)
[2017-03-22] MEDS ORDERED: VITAMIN B122500 MCG PO (12:36)
== END 2016-12-30 15:57 | DRG 811 ==
LOC: CED 08:56 → CEDOF 12:10 → CED 12:25 → CEDOF 12:25 → C5C 14:13 → CEDOF 14:13 → C5C 14:13 → CICCU2 12-21 12:15 → C5C 12-21 12:15 → CICCU2 12-23 11:16 → C3A PCU 12-28 17:58
PROVIDERS: Emergency Medicine; Family Medicine; Internal Medicine; Internal Medicine Cardiovascular Disease; Internal Medicine Medical Oncology
PROC: 30243N1 Transfusion of Nonautologous Red Blood Cells into Central Vein, Percutaneous Approach (ICD-10-PCS; principal; 2016-12-20)
PROC: 5A1955Z Respiratory Ventilation, Greater than 96 Consecutive Hours (ICD-10-PCS; 2016-12-21)
PROC: B32TYZZ Computerized Tomography (CT Scan) of Left Pulmonary Artery using Other Contrast (ICD-10-PCS; 2016-12-21)
PROC: B32SYZZ Computerized Tomography (CT Scan) of Right Pulmonary Artery using Other Contrast (ICD-10-PCS; 2016-12-21)
PROC: B24BZZZ Ultrasonography of Heart with Aorta (ICD-10-PCS; 2016-12-21)
PROC: 02HV33Z Insertion of Infusion Device into Superior Vena Cava, Percutaneous Approach (ICD-10-PCS; 2016-12-21)
PROC: 0BH17EZ Insertion of Endotracheal Airway into Trachea, Via Natural or Artificial Opening (ICD-10-PCS; 2016-12-21)
PROC: 0DH67UZ Insertion of Feeding Device into Stomach, Via Natural or Artificial Opening (ICD-10-PCS; 2016-12-22)
PROC: 07DR3ZX Extraction of Iliac Bone Marrow, Percutaneous Approach, Diagnostic (ICD-10-PCS; 2016-12-26)
DX: D46.9 Myelodysplastic syndrome, unspecified (principal); I50.21 Acute systolic (congestive) heart failure; I21.4 Non-ST elevation (NSTEMI) myocardial infarction; J96.01 Acute respiratory failure with hypoxia; J18.9 Pneumonia, unspecified organism; D61.818 Other pancytopenia; J44.0 Chronic obstructive pulmonary disease with (acute) lower respiratory infection; E44.0 Moderate protein-calorie malnutrition; E87.0 Hyperosmolality and hypernatremia; I11.0 Hypertensive heart disease with heart failure; J44.1 Chronic obstructive pulmonary disease with (acute) exacerbation; D69.6 Thrombocytopenia, unspecified; D63.0 Anemia in neoplastic disease; I25.119 Atherosclerotic heart disease of native coronary artery with unspecified angina pectoris; F17.210 Nicotine dependence, cigarettes, uncomplicated; M35.3 Polymyalgia rheumatica; I44.7 Left bundle-branch block, unspecified; Z90.710 Acquired absence of both cervix and uterus; Z88.0 Allergy status to penicillin; Z88.2 Allergy status to sulfonamides; E87.6 Hypokalemia; I95.9 Hypotension, unspecified; I27.2 Other secondary pulmonary hypertension; Z68.23 Body mass index [BMI] 23.0-23.9, adult; E53.8 Deficiency of other specified B group vitamins; R94.31 Abnormal electrocardiogram [ECG] [EKG]
CPT/HCPCS: 36415; 36600; 71010; 71020; 71035; 71275; 74000; 77002; 77012; 80048; 80053; 80061; 80076; 81003; 82308; 82550; 82553; 82803; 82947; 83036; 83605; 83735; 83880; 84100; 84132; 84484; 85014; 85018; 85025; 85027; 85384; 85610; 85730; 86850; 86900; 86901; 86923; 87040; 87070; 87205; 87449; 87899; 88182; 88184; 88185; 88305; 88311; 88313; 88323; 88341; 88342; 92610; 93005; 93306; 94002; 94003; 94010; 94640; 94760; 94761; 96365; 96367; 97110; 97116; 97163; 97167; 97530; 97535; 99285; C9113; G8978-GP; G8979-GP; G8980-GP; G8987-GO; G8988-GO; G8996-GN; G8997-GN; J0282; J0456; J0696; J1120; J1940; J2250; J2270; J2920; J2930; J3010; J3420; J3475; P9016; Q9967

== ENCOUNTER → 2017-01-25 | Outpatient (CLI) | payer MEDICARE, BC ==
[~2017-01-25] MED LIST changes: +ACETAMINOPHEN; +APAP325 M2 PO; +BUSPIRONE HCL7.5 MG PO; +ENTRESTO 24 MG1 EACH; +ENTRESTO 24 MG1 EACH PO; +IBUPROFEN; +IBUPROFEN PO; +KLOR-CON SPRIN10 MEQ PO; +LASIX; +METOPROLOL SUCC50 MG PO; +PATIENT'S PHARMACY; +PREDNISONE; +PROTONIX40 M1 PO; +VITAMIN B122500 MCG PO
== END | disposition home or self-care (01) ==
LOC: CLAB 14:53
DX: D46.9 Myelodysplastic syndrome, unspecified (principal)
CPT/HCPCS: 86850; 86900; 86901; 86923

== ENCOUNTER → 2017-01-26 | Outpatient (CLI) | payer MEDICARE, BC | END | disposition home or self-care (01) | LOC: CSSDAY 08:00 | DX: D64.9 Anemia, unspecified (principal) | CPT/HCPCS: 36430; J1100; J1200; J1940; P9016 ==

== ENCOUNTER → 2017-02-22 | Outpatient (CLI) | payer MEDICARE, BC | END | disposition home or self-care (01) | LOC: CLAB 15:08 | DX: D50.9 Iron deficiency anemia, unspecified (principal); K90.9 Intestinal malabsorption, unspecified | CPT/HCPCS: 36415; 86850; 86900; 86901; 86923 ==

== ENCOUNTER → 2017-02-23 | Outpatient (CLI) | payer MEDICARE, BC | END | disposition home or self-care (01) | LOC: CSSDAY 08:20 | DX: D50.9 Iron deficiency anemia, unspecified (principal); K90.9 Intestinal malabsorption, unspecified | CPT/HCPCS: 36430; J1100; J1200; J1940; P9016 ==